=== PATIENT | male | born 1960 | race Caucasian/White ===

== ENCOUNTER 2020-11-17 11:25 | Inpatient (IN) | payer OTHER ==
[2020-11-17 12:45] VITALS: BMI 21.2
[2020-11-17] MEDS ORDERED: MAGNESIUM HYDROX 2400MG/30ML ORAL SUSPENSION 30 ML CUP PO PRN (15:30)
[2020-11-17] MEDS ORDERED: METHOCARBAMOL 500 MG TABLET PO PRN (15:30)
[2020-11-17] MEDS ORDERED: NICOTINE POLACRILEX 2 MG GUM BUC PRN (15:30)
[2020-11-17] MEDS ORDERED: LORazepam 1 MG TABLET PO PRN (15:30)
[2020-11-17] MEDS ORDERED: ONDANSETRON *ODT* 4 MG TABLET SL PRN (15:30)
[2020-11-17] MEDS ORDERED: BISMUTH SUBSALICYLATE 262 MG/15 ML BTL PO PRN (15:30)
[2020-11-17] MEDS ORDERED: IBUPROFEN 400 MG TABLET (FP) PO PRN (15:30)
[2020-11-17] MEDS ORDERED: MENTHOL/PHENOL 1 EACH UD MM PRN (15:30)
[2020-11-17] MEDS ORDERED: MAG HYDROX/AL HYDROX/SIMETH 30 ML UNIT-DOSE CUP PO PRN (15:30)
[2020-11-17] MEDS ORDERED: MAGNESIUM CITRATE 300 ML BOTTLE PO PRN (15:30)
[2020-11-17] MEDS ORDERED: ACETAMINOPHEN 325 MG TABLET (FP) PO PRN ×2 (15:30)
[2020-11-17] MEDS: hydrOXYzine PAMOATE 25 MG CAPSULE (FP) PO SCH ×2 (17:47→22:26)
[2020-11-17] MEDS: LORazepam 2 MG TABLET PO SCH ×2 (17:47→22:26)
[2020-11-17] MEDS: NICOTINE 21 MG/24 HOURS TOPICAL PATCH TD SCH (17:51)
[2020-11-17] MEDS: THIAMINE HCL 100 MG TABLET (FP) PO SCH (22:26)
[2020-11-17] MEDS: MELATONIN 5 MG TABLETS PO SCH (22:26)
[2020-11-18] MEDS: hydrOXYzine PAMOATE 25 MG CAPSULE (FP) PO SCH ×5 (05:41→22:08)
[2020-11-18] MEDS: LORazepam 2 MG TABLET PO SCH ×4 (05:41→22:08)
[2020-11-18] MEDS ORDERED: METHADONE HCL 10 MG TABLET PO ONE (09:54)
[2020-11-18] MEDS ORDERED: METHADONE 120 MG, METHADONE 10 MG, METHADONE 5 MG PO ONE (09:54)
[2020-11-18] MEDS ORDERED: METHADONE HCL 10 MG TABLET ONE (10:19)
[2020-11-18] MEDS ORDERED: METHADONE HCL 40 MG DISPERSABLE TABLET ONE (10:19)
[2020-11-18] MEDS ORDERED: METHADONE HCL 5 MG TABLET ONE (10:19)
[2020-11-18] MEDS: NICOTINE 21 MG/24 HOURS TOPICAL PATCH TD SCH (10:28)
[2020-11-18] MEDS: PRENATAL VITAMINS W/ FOLIC ACID TABLET (FP) PO SCH (10:30)
[2020-11-18 11:14] LABS: CALCIUM 8.7 mg/dL (8.5-10.1)
[2020-11-18 11:15] LABS: ALBUMIN 2.8 g/dl (3.4-5.0); BLOOD UREA NITROGEN 15.8 mg/dL (7-18)
[2020-11-18 11:18] LABS: CREATININE 0.7 mg/dL (0.55-1.3)
[2020-11-18 11:19] LABS: BILIRUBIN,TOTAL 0.1 mg/dL (0.2-1)
[2020-11-18 11:20] LABS: TOT PROT 5.7 g/dl (6.4-8.2)
[2020-11-18 11:26] LABS: HEMATOCRIT 38.9 % (35.4-49); HEMOGLOBIN 13.1 GM/dL (11.7-16.9); MCHC 33.5 g/dl (32.0-35.9); MEAN CELL VOLUME 95.5 fl (80-96); MEAN PLT VOLUME 7.7 fl (7.5-11.1); PLATELET COUNT 244 K/MM3 (134-434); RBC 4.07 M/mm3 (4.00-5.60); RDW 13.7 % (11.9-15.9); WHITE BLOOD COUNT 7.4 K/mm3 (4.0-10.0)
[2020-11-18] MEDS: MELATONIN 5 MG TABLETS PO SCH (22:08)
[2020-11-18] MEDS: THIAMINE HCL 100 MG TABLET (FP) PO SCH (22:08)
[2020-11-19] MEDS: LORazepam 1 MG TABLET PO SCH ×4 (05:27→22:10)
[2020-11-19] MEDS: hydrOXYzine PAMOATE 25 MG CAPSULE (FP) PO SCH ×5 (05:28→22:10)
[2020-11-19] MEDS ORDERED: METHADONE 120 MG, METHADONE 10 MG, METHADONE 5 MG PO SCH (06:00)
[2020-11-19] MEDS ORDERED: METHADONE HCL 10 MG TABLET PO SCH ×2 (06:00→10:30)
[2020-11-19] MEDS ORDERED: METHADONE 120 MG, METHADONE 15 MG PO SCH (10:45)
[2020-11-19] MEDS ORDERED: METHADONE HCL 40 MG DISPERSABLE TABLET ONE (11:08)
[2020-11-19] MEDS ORDERED: METHADONE HCL 10 MG TABLET ONE (11:08)
[2020-11-19] MEDS ORDERED: METHADONE HCL 5 MG TABLET ONE (11:09)
[2020-11-19] MEDS: NICOTINE 21 MG/24 HOURS TOPICAL PATCH TD SCH (11:13)
[2020-11-19] MEDS: PRENATAL VITAMINS W/ FOLIC ACID TABLET (FP) PO SCH (11:13)
[2020-11-19] MEDS: METHADONE 120 MG, METHADONE 10 MG, METHADONE 5 MG PO SCH (11:14)
[2020-11-19] MEDS ORDERED: MASKS NR ONE (16:06)
[2020-11-19] MEDS: MELATONIN 5 MG TABLETS PO SCH (22:10)
[2020-11-19] MEDS: THIAMINE HCL 100 MG TABLET (FP) PO SCH (22:10)
[2020-11-20] MEDS ORDERED: LORazepam 0.5 MG TABLET PO PRN
[2020-11-20] MEDS ORDERED: METHADONE HCL 10 MG TABLET ONE (04:09)
[2020-11-20] MEDS ORDERED: METHADONE HCL 5 MG TABLET ONE (04:10)
[2020-11-20] MEDS ORDERED: METHADONE HCL 40 MG DISPERSABLE TABLET ONE (04:10)
[2020-11-20] MEDS: METHADONE 120 MG, METHADONE 10 MG, METHADONE 5 MG PO SCH (05:28)
[2020-11-20] MEDS: LORazepam 0.5 MG TABLET PO SCH ×4 (05:29→22:08)
[2020-11-20] MEDS: hydrOXYzine PAMOATE 25 MG CAPSULE (FP) PO SCH ×5 (05:29→22:08)
[2020-11-20] MEDS: NICOTINE 21 MG/24 HOURS TOPICAL PATCH TD SCH (10:20)
[2020-11-20] MEDS: PRENATAL VITAMINS W/ FOLIC ACID TABLET (FP) PO SCH (10:20)
[2020-11-20] MEDS ORDERED: MASKS NR ONE (10:40)
[2020-11-20] MEDS: MELATONIN 5 MG TABLETS PO SCH (22:08)
[2020-11-20] MEDS: THIAMINE HCL 100 MG TABLET (FP) PO SCH (22:08)
[2020-11-21] MEDS ORDERED: METHADONE HCL 10 MG TABLET ONE (04:01)
[2020-11-21] MEDS ORDERED: METHADONE HCL 40 MG DISPERSABLE TABLET ONE (04:01)
[2020-11-21] MEDS ORDERED: METHADONE HCL 5 MG TABLET ONE (04:02)
[2020-11-21] MEDS ORDERED: LORazepam 0.5 MG TABLET PO ONE (05:00)
[2020-11-21] MEDS: METHADONE 120 MG, METHADONE 10 MG, METHADONE 5 MG PO SCH (05:43)
[2020-11-21] MEDS: hydrOXYzine PAMOATE 25 MG CAPSULE (FP) PO SCH ×3 (05:44→13:05)
[2020-11-21 07:21] VITALS: BP 113/62; PULSE 60; TEMP 98.4
[2020-11-21] MEDS: PRENATAL VITAMINS W/ FOLIC ACID TABLET (FP) PO SCH (09:28)
[2020-11-21] MEDS: NICOTINE 21 MG/24 HOURS TOPICAL PATCH TD SCH (09:29)
== END 2020-11-21 13:28 | disposition other institution (70) | DRG 773 ==
LOC: YASAS 11:25 → Y3N 15:03
PROVIDERS: ADMIT Allergy & Immunology; ATTEND Allergy & Immunology
PROC: HZ2ZZZZ Detoxification Services for Substance Abuse Treatment (ICD-10-PCS; principal; 2020-11-17)
DX: F13.230 Sedative, hypnotic or anxiolytic dependence with withdrawal, uncomplicated (principal); F11.20 Opioid dependence, uncomplicated; F14.20 Cocaine dependence, uncomplicated; F17.213 Nicotine dependence, cigarettes, with withdrawal; F19.24 Other psychoactive substance dependence with psychoactive substance-induced mood disorder; F31.9 Bipolar disorder, unspecified; J45.20 Mild intermittent asthma, uncomplicated; J43.0 Unilateral pulmonary emphysema [MacLeod's syndrome]; Z59.0 Homelessness
CPT/HCPCS: 36415; 80053; 85027; 86780; 93005; 93010; C9803; U0003

== ENCOUNTER 2020-11-21 13:34 | Inpatient (IN) | payer OTHER ==
[~2020-11-21 13:34] MED LIST: ACETAMINOPHEN 325 MG TABLET (FP) PO PRN; IBUPROFEN 400 MG TABLET (FP) PO PRN; LOPERAMIDE HCL 2 MG CAPSULE PO PRN; MAG HYDROX/AL HYDROX/SIMETH 30 ML UNIT-DOSE CUP PO PRN; MAGNESIUM CITRATE 300 ML BOTTLE PO PRN; MAGNESIUM HYDROX 2400MG/30ML ORAL SUSPENSION 30 ML CUP PO PRN; NICOTINE POLACRILEX 4 MG GUM BC PRN; P-EPHED 60MG/TRIPROLIDI 2.5MG TABLET PO PRN; guaiFENesin 200 MG/10 ML 10 ML UNIT-DOSE CUPS PO PRN
[2020-11-21] MEDS: THIAMINE HCL 100 MG TABLET (FP) PO SCH (21:19)
[2020-11-21] MEDS: MELATONIN 5 MG TABLETS PO SCH (21:19)
[2020-11-22] MEDS ORDERED: methaDONE HCL 40 MG DISPERSABLE TABLET ONE (04:11)
[2020-11-22] MEDS ORDERED: methaDONE HCL 10 MG TABLET ONE (04:12)
[2020-11-22] MEDS ORDERED: methaDONE HCL 10 MG TABLET PO SCH (06:00)
[2020-11-22] MEDS: hydrOXYzine PAMOATE 25 MG CAPSULE (FP) PO PRN (09:32)
[2020-11-22] MEDS: PRENATAL VITAMINS W/ FOLIC ACID TABLET (FP) PO SCH (09:32)
[2020-11-22] MEDS: NICOTINE 21 MG/24 HOURS TOPICAL PATCH TD SCH (09:33)
[2020-11-22] MEDS: MELATONIN 5 MG TABLETS PO SCH (21:16)
[2020-11-22] MEDS: SUVOREXANT 10 MG TABLET PO PRN (21:16)
[2020-11-22] MEDS: THIAMINE HCL 100 MG TABLET (FP) PO SCH (21:16)
[2020-11-23] MEDS ORDERED: methaDONE HCL 40 MG DISPERSABLE TABLET ONE (03:18)
[2020-11-23] MEDS ORDERED: methaDONE HCL 10 MG TABLET ONE (03:18)
[2020-11-23] MEDS: PRENATAL VITAMINS W/ FOLIC ACID TABLET (FP) PO SCH (09:52)
[2020-11-23] MEDS: NICOTINE 21 MG/24 HOURS TOPICAL PATCH TD SCH (09:52)
[2020-11-23] MEDS: hydrOXYzine PAMOATE 25 MG CAPSULE (FP) PO PRN (09:52)
[2020-11-23] MEDS: SUVOREXANT 10 MG TABLET PO PRN (21:18)
[2020-11-23] MEDS: THIAMINE HCL 100 MG TABLET (FP) PO SCH (21:18)
[2020-11-23] MEDS: MELATONIN 5 MG TABLETS PO SCH (21:18)
[2020-11-24] MEDS ORDERED: methaDONE HCL 40 MG DISPERSABLE TABLET ONE (04:43)
[2020-11-24] MEDS ORDERED: methaDONE HCL 10 MG TABLET ONE (04:43)
[2020-11-24] MEDS: PRENATAL VITAMINS W/ FOLIC ACID TABLET (FP) PO SCH (09:52)
[2020-11-24] MEDS: NICOTINE 21 MG/24 HOURS TOPICAL PATCH TD SCH (09:52)
[2020-11-24] MEDS: hydrOXYzine PAMOATE 25 MG CAPSULE (FP) PO PRN (09:52)
[2020-11-24] MEDS: THIAMINE HCL 100 MG TABLET (FP) PO SCH (21:04)
[2020-11-24] MEDS: MELATONIN 5 MG TABLETS PO SCH (21:05)
[2020-11-25] MEDS ORDERED: methaDONE HCL 40 MG DISPERSABLE TABLET ONE (05:35)
[2020-11-25] MEDS ORDERED: methaDONE HCL 10 MG TABLET ONE (05:36)
[2020-11-25] MEDS: hydrOXYzine PAMOATE 25 MG CAPSULE (FP) PO PRN ×3 (08:54→21:48)
[2020-11-25] MEDS: PRENATAL VITAMINS W/ FOLIC ACID TABLET (FP) PO SCH (09:59)
[2020-11-25] MEDS: NICOTINE 21 MG/24 HOURS TOPICAL PATCH TD SCH (09:59)
[2020-11-25] MEDS: THIAMINE HCL 100 MG TABLET (FP) PO SCH (21:47)
[2020-11-25] MEDS: SUVOREXANT 10 MG TABLET PO PRN (21:50)
[2020-11-25] MEDS: MELATONIN 5 MG TABLETS PO SCH (21:50)
[2020-11-26] MEDS ORDERED: methaDONE HCL 40 MG DISPERSABLE TABLET ONE (05:38)
[2020-11-26] MEDS ORDERED: methaDONE HCL 10 MG TABLET ONE (05:39)
[2020-11-26] MEDS: PRENATAL VITAMINS W/ FOLIC ACID TABLET (FP) PO SCH (10:12)
[2020-11-26] MEDS: NICOTINE 21 MG/24 HOURS TOPICAL PATCH TD SCH (10:12)
[2020-11-26] MEDS: hydrOXYzine PAMOATE 25 MG CAPSULE (FP) PO PRN ×2 (10:12→14:50)
[2020-11-26] MEDS: MELATONIN 5 MG TABLETS PO SCH (21:04)
[2020-11-26] MEDS: THIAMINE HCL 100 MG TABLET (FP) PO SCH (21:04)
[2020-11-26] MEDS: SUVOREXANT 10 MG TABLET PO PRN (21:05)
[2020-11-27] MEDS ORDERED: methaDONE HCL 10 MG TABLET ONE (05:36)
[2020-11-27] MEDS ORDERED: methaDONE HCL 40 MG DISPERSABLE TABLET ONE (05:36)
[2020-11-27] MEDS: hydrOXYzine PAMOATE 25 MG CAPSULE (FP) PO PRN ×3 (09:58→21:37)
[2020-11-27] MEDS: PRENATAL VITAMINS W/ FOLIC ACID TABLET (FP) PO SCH (09:58)
[2020-11-27] MEDS: NICOTINE 21 MG/24 HOURS TOPICAL PATCH TD SCH (09:59)
[2020-11-27] MEDS: SUVOREXANT 10 MG TABLET PO PRN (21:36)
[2020-11-27] MEDS: MELATONIN 5 MG TABLETS PO SCH (21:36)
[2020-11-27] MEDS: THIAMINE HCL 100 MG TABLET (FP) PO SCH (21:37)
[2020-11-28] MEDS ORDERED: methaDONE HCL 40 MG DISPERSABLE TABLET ONE (03:41)
[2020-11-28] MEDS ORDERED: methaDONE HCL 10 MG TABLET ONE (03:41)
[2020-11-28] MEDS: PRENATAL VITAMINS W/ FOLIC ACID TABLET (FP) PO SCH (09:43)
[2020-11-28] MEDS: NICOTINE 21 MG/24 HOURS TOPICAL PATCH TD SCH (09:43)
[2020-11-28] MEDS: hydrOXYzine PAMOATE 25 MG CAPSULE (FP) PO PRN ×3 (09:43→21:08)
[2020-11-28] MEDS: THIAMINE HCL 100 MG TABLET (FP) PO SCH (21:08)
[2020-11-28] MEDS: MELATONIN 5 MG TABLETS PO SCH (21:08)
[2020-11-28] MEDS: SUVOREXANT 10 MG TABLET PO PRN (21:08)
[2020-11-29] MEDS ORDERED: methaDONE HCL 10 MG TABLET ONE (05:36)
[2020-11-29] MEDS ORDERED: methaDONE HCL 40 MG DISPERSABLE TABLET ONE (05:36)
[2020-11-29] MEDS: hydrOXYzine PAMOATE 25 MG CAPSULE (FP) PO PRN ×4 (05:54→21:15)
[2020-11-29] MEDS: PRENATAL VITAMINS W/ FOLIC ACID TABLET (FP) PO SCH (10:04)
[2020-11-29] MEDS: NICOTINE 21 MG/24 HOURS TOPICAL PATCH TD SCH (10:05)
[2020-11-29] MEDS: THIAMINE HCL 100 MG TABLET (FP) PO SCH (21:15)
[2020-11-29] MEDS: SUVOREXANT 10 MG TABLET PO PRN (21:15)
[2020-11-30] MEDS ORDERED: methaDONE HCL 40 MG DISPERSABLE TABLET ONE (04:45)
[2020-11-30] MEDS ORDERED: methaDONE HCL 10 MG TABLET ONE (04:46)
[2020-11-30] MEDS: hydrOXYzine PAMOATE 25 MG CAPSULE (FP) PO PRN ×4 (06:24→21:30)
[2020-11-30] MEDS: PRENATAL VITAMINS W/ FOLIC ACID TABLET (FP) PO SCH (09:46)
[2020-11-30] MEDS: NICOTINE 21 MG/24 HOURS TOPICAL PATCH TD SCH (09:46)
[2020-11-30] MEDS: THIAMINE HCL 100 MG TABLET (FP) PO SCH (21:30)
[2020-11-30] MEDS: SUVOREXANT 10 MG TABLET PO PRN (21:31)
[2020-12-01] MEDS ORDERED: methaDONE HCL 40 MG DISPERSABLE TABLET ONE (05:37)
[2020-12-01] MEDS ORDERED: methaDONE HCL 10 MG TABLET ONE (05:38)
[2020-12-01] MEDS: hydrOXYzine PAMOATE 25 MG CAPSULE (FP) PO PRN ×4 (06:04→21:08)
[2020-12-01] MEDS: PRENATAL VITAMINS W/ FOLIC ACID TABLET (FP) PO SCH (09:53)
[2020-12-01] MEDS: NICOTINE 21 MG/24 HOURS TOPICAL PATCH TD SCH (09:53)
[2020-12-01] MEDS: THIAMINE HCL 100 MG TABLET (FP) PO SCH (21:07)
[2020-12-01] MEDS: SUVOREXANT 10 MG TABLET PO PRN (21:08)
[2020-12-02] MEDS ORDERED: methaDONE HCL 40 MG DISPERSABLE TABLET ONE (05:07)
[2020-12-02] MEDS ORDERED: methaDONE HCL 10 MG TABLET ONE (05:07)
[2020-12-02] MEDS: hydrOXYzine PAMOATE 25 MG CAPSULE (FP) PO PRN ×4 (06:18→21:26)
[2020-12-02] MEDS: PRENATAL VITAMINS W/ FOLIC ACID TABLET (FP) PO SCH (10:27)
[2020-12-02] MEDS: NICOTINE 21 MG/24 HOURS TOPICAL PATCH TD SCH (10:28)
[2020-12-02] MEDS: THIAMINE HCL 100 MG TABLET (FP) PO SCH (21:25)
[2020-12-02] MEDS: SUVOREXANT 10 MG TABLET PO PRN (21:26)
[2020-12-03] MEDS ORDERED: methaDONE HCL 40 MG DISPERSABLE TABLET ONE (03:26)
[2020-12-03] MEDS ORDERED: methaDONE HCL 10 MG TABLET ONE (03:26)
[2020-12-03] MEDS: hydrOXYzine PAMOATE 25 MG CAPSULE (FP) PO PRN ×4 (06:15→21:13)
[2020-12-03] MEDS: PRENATAL VITAMINS W/ FOLIC ACID TABLET (FP) PO SCH (10:29)
[2020-12-03] MEDS: NICOTINE 21 MG/24 HOURS TOPICAL PATCH TD SCH (12:36)
[2020-12-03] MEDS: THIAMINE HCL 100 MG TABLET (FP) PO SCH (21:13)
[2020-12-03] MEDS: SUVOREXANT 10 MG TABLET PO PRN (21:14)
[2020-12-04] MEDS ORDERED: methaDONE HCL 40 MG DISPERSABLE TABLET ONE (05:50)
[2020-12-04] MEDS ORDERED: methaDONE HCL 10 MG TABLET ONE (05:50)
[2020-12-04] MEDS: hydrOXYzine PAMOATE 25 MG CAPSULE (FP) PO PRN ×4 (06:18→21:22)
[2020-12-04] MEDS: PRENATAL VITAMINS W/ FOLIC ACID TABLET (FP) PO SCH (09:49)
[2020-12-04] MEDS: NICOTINE 21 MG/24 HOURS TOPICAL PATCH TD SCH (09:49)
[2020-12-04] MEDS: THIAMINE HCL 100 MG TABLET (FP) PO SCH (21:22)
[2020-12-04] MEDS: SUVOREXANT 10 MG TABLET PO PRN (21:23)
[2020-12-04] MEDS ORDERED: SUVOREXANT 10 MG TABLET PO PRN (22:00)
[2020-12-05] MEDS ORDERED: methaDONE HCL 10 MG TABLET ONE (04:29)
[2020-12-05] MEDS ORDERED: methaDONE HCL 40 MG DISPERSABLE TABLET ONE (04:29)
[2020-12-05] MEDS: hydrOXYzine PAMOATE 25 MG CAPSULE (FP) PO PRN (06:17)
[2020-12-05 07:13] VITALS: BP 100/67; PULSE 64; TEMP 97.9
[2020-12-05] MEDS ORDERED: SUVOREXANT 10 MG TABLET PO PRN (22:00)
== END 2020-12-05 09:20 | disposition home or self-care (01) | DRG 772 ==
LOC: YASAS 13:34 → Y3W 13:40
PROVIDERS: ADMIT Allergy & Immunology; ATTEND Allergy & Immunology
PROC: HZ42ZZZ Group Counseling for Substance Abuse Treatment, Cognitive-Behavioral (ICD-10-PCS; principal; 2020-11-21)
DX: F13.20 Sedative, hypnotic or anxiolytic dependence, uncomplicated (principal); F11.20 Opioid dependence, uncomplicated; F14.20 Cocaine dependence, uncomplicated; F17.210 Nicotine dependence, cigarettes, uncomplicated; F19.282 Other psychoactive substance dependence with psychoactive substance-induced sleep disorder; F41.9 Anxiety disorder, unspecified; G47.00 Insomnia, unspecified; J44.9 Chronic obstructive pulmonary disease, unspecified; J45.20 Mild intermittent asthma, uncomplicated

== ENCOUNTER 2021-01-11 10:17 | Inpatient (IN) | payer OTHER ==
[2021-01-11 10:54] VITALS: BMI 22.5
[2021-01-11] MEDS ORDERED: BISMUTH SUBSALICYLATE 524 MG/30 ML UD PO PRN (11:54)
[2021-01-11] MEDS ORDERED: MAGNESIUM HYDROX 2400MG/30ML ORAL SUSPENSION 30 ML CUP PO PRN (11:54)
[2021-01-11] MEDS ORDERED: MAGNESIUM CITRATE 300 ML BOTTLE PO PRN (11:54)
[2021-01-11] MEDS ORDERED: ONDANSETRON *ODT* 4 MG TABLET SL PRN (11:54)
[2021-01-11] MEDS ORDERED: LORazepam 1 MG TABLET PO PRN (11:54)
[2021-01-11] MEDS ORDERED: ACETAMINOPHEN 325 MG TABLET (FP) PO PRN ×2 (11:54)
[2021-01-11] MEDS ORDERED: METHOCARBAMOL 500 MG TABLET PO PRN (11:54)
[2021-01-11] MEDS ORDERED: MENTHOL/PHENOL 1 EACH UD MM PRN (11:54)
[2021-01-11] MEDS ORDERED: IBUPROFEN 400 MG TABLET (FP) PO PRN (11:54)
[2021-01-11] MEDS ORDERED: NICOTINE POLACRILEX 2 MG GUM BUC PRN (11:54)
[2021-01-11] MEDS ORDERED: MAG HYDROX/AL HYDROX/SIMETH 30 ML UNIT-DOSE CUP PO PRN (11:54)
[2021-01-11] MEDS: NICOTINE 21 MG/24 HOURS TOPICAL PATCH TD SCH (12:58)
[2021-01-11] MEDS: hydrOXYzine PAMOATE 25 MG CAPSULE (FP) PO SCH ×3 (13:02→22:21)
[2021-01-11 13:44] LABS: HEMOGLOBIN 13.3 GM/dL (11.7-16.9); MCH 32.3 pg (25.7-33.7); MCHC 34.2 g/dl (32.0-35.9); MEAN CELL VOLUME 94.7 fl (80-96); MEAN PLT VOLUME 7.7 fl (7.5-11.1); PLATELET COUNT 302 K/MM3 (134-434); RBC 4.12 M/mm3 (4.00-5.60); RDW 13.8 % (11.9-15.9); WHITE BLOOD COUNT 9.6 K/mm3 (4.0-10.0)
[2021-01-11 13:53] LABS: POTASSIUM 3.7 mmol/L (3.5-5.1)
[2021-01-11 14:11] LABS: CALCIUM 9.1 mg/dL (8.5-10.1)
[2021-01-11 14:12] LABS: ALBUMIN 3.7 g/dl (3.4-5.0); BLOOD UREA NITROGEN 20.8 mg/dL (7-18)
[2021-01-11 14:14] LABS: BILIRUBIN,TOTAL 0.2 mg/dL (0.2-1); TOT PROT 6.7 g/dl (6.4-8.2)
[2021-01-11 14:15] LABS: CREATININE 0.9 mg/dL (0.55-1.3)
[2021-01-11 14:41] LABS: HIV INTERPRETATION NEGATIVE (NEGATIVE)
[2021-01-11] MEDS: LORazepam 2 MG TABLET PO SCH ×2 (17:38→22:21)
[2021-01-11] MEDS ORDERED: MELATONIN 5 MG TABLETS PO SCH (22:00)
[2021-01-11] MEDS: THIAMINE HCL 100 MG TABLET (FP) PO SCH (22:20)
[2021-01-12] MEDS: hydrOXYzine PAMOATE 25 MG CAPSULE (FP) PO SCH ×2 (06:27→10:14)
[2021-01-12] MEDS: LORazepam 2 MG TABLET PO SCH ×4 (06:27→22:10)
[2021-01-12] MEDS: PRENATAL VITAMINS W/ FOLIC ACID TABLET (FP) PO SCH (10:14)
[2021-01-12] MEDS: NICOTINE 21 MG/24 HOURS TOPICAL PATCH TD SCH (10:14)
[2021-01-12] MEDS ORDERED: cloNIDine HCL 0.1 MG TABLET PO PRN (11:16)
[2021-01-12] MEDS ORDERED: METHADONE HCL 10 MG TABLET (FOR DETOX USE ONLY) PO ONE (11:16)
[2021-01-12] MEDS ORDERED: METHADONE HCL 10 MG TABLET PO ONE (11:27)
[2021-01-12] MEDS ORDERED: METHADONE 120 MG, METHADONE 30 MG PO ONE (11:27)
[2021-01-12] MEDS ORDERED: METHADONE HCL 10 MG TABLET ONE (11:34)
[2021-01-12] MEDS ORDERED: METHADONE HCL 40 MG DISPERSABLE TABLET ONE (11:35)
[2021-01-12] MEDS: THIAMINE HCL 100 MG TABLET (FP) PO SCH (22:10)
[2021-01-13] MEDS ORDERED: METHADONE HCL 10 MG TABLET ONE (04:19)
[2021-01-13] MEDS ORDERED: METHADONE HCL 40 MG DISPERSABLE TABLET ONE (04:20)
[2021-01-13] MEDS: LORazepam 1 MG TABLET PO SCH ×4 (05:41→22:05)
[2021-01-13] MEDS: METHADONE 120 MG, METHADONE 30 MG PO SCH (05:41)
[2021-01-13] MEDS ORDERED: METHADONE HCL 40 MG DISPERSABLE TABLET PO SCH (06:00)
[2021-01-13] MEDS ORDERED: METHADONE (DETOX) 20 MG, METHADONE (DETOX) 5 MG PO ONE (10:00)
[2021-01-13] MEDS: PRENATAL VITAMINS W/ FOLIC ACID TABLET (FP) PO SCH (10:15)
[2021-01-13] MEDS: hydrOXYzine PAMOATE 25 MG CAPSULE (FP) PO PRN ×2 (10:16→17:33)
[2021-01-13] MEDS: NICOTINE 21 MG/24 HOURS TOPICAL PATCH TD SCH (10:16)
[2021-01-13] MEDS: THIAMINE HCL 100 MG TABLET (FP) PO SCH (22:05)
[2021-01-13] MEDS: SUVOREXANT 10 MG TABLET PO PRN (22:06)
[2021-01-14] MEDS ORDERED: LORazepam 0.5 MG TABLET PO PRN
[2021-01-14] MEDS ORDERED: METHADONE HCL 10 MG TABLET ONE (03:14)
[2021-01-14] MEDS ORDERED: METHADONE HCL 40 MG DISPERSABLE TABLET ONE (03:15)
[2021-01-14] MEDS: LORazepam 0.5 MG TABLET PO SCH ×4 (05:47→22:12)
[2021-01-14] MEDS: METHADONE 120 MG, METHADONE 30 MG PO SCH (05:48)
[2021-01-14] MEDS: hydrOXYzine PAMOATE 25 MG CAPSULE (FP) PO PRN ×4 (08:22→22:13)
[2021-01-14] MEDS ORDERED: METHADONE HCL 10 MG TABLET (FOR DETOX USE ONLY) PO ONE (10:00)
[2021-01-14] MEDS: NICOTINE 21 MG/24 HOURS TOPICAL PATCH TD SCH (10:30)
[2021-01-14] MEDS: PRENATAL VITAMINS W/ FOLIC ACID TABLET (FP) PO SCH (10:30)
[2021-01-14] MEDS: THIAMINE HCL 100 MG TABLET (FP) PO SCH (22:12)
[2021-01-14] MEDS: SUVOREXANT 10 MG TABLET PO PRN (22:13)
[2021-01-15] MEDS ORDERED: METHADONE HCL 10 MG TABLET ONE (03:23)
[2021-01-15] MEDS ORDERED: METHADONE HCL 40 MG DISPERSABLE TABLET ONE (03:23)
[2021-01-15] MEDS ORDERED: LORazepam 0.5 MG TABLET PO ONE (05:00)
[2021-01-15] MEDS: METHADONE 120 MG, METHADONE 30 MG PO SCH (05:42)
[2021-01-15] MEDS: hydrOXYzine PAMOATE 25 MG CAPSULE (FP) PO PRN ×2 (05:43→13:20)
[2021-01-15] MEDS: NICOTINE 21 MG/24 HOURS TOPICAL PATCH TD SCH (09:40)
[2021-01-15] MEDS: PRENATAL VITAMINS W/ FOLIC ACID TABLET (FP) PO SCH (09:40)
[2021-01-15] MEDS ORDERED: METHADONE (DETOX) 10 MG, METHADONE (DETOX) 5 MG PO ONE (10:00)
[2021-01-15 14:34] VITALS: BP 116/70; PULSE 69; TEMP 97.5
[2021-01-16] MEDS ORDERED: METHADONE HCL 10 MG TABLET (FOR DETOX USE ONLY) PO ONE (10:00)
[2021-01-17] MEDS ORDERED: METHADONE HCL 5 MG TABLET (FOR DETOX USE ONLY) PO ONE (06:00)
== END 2021-01-15 15:10 | disposition other institution (70) | DRG 773 ==
LOC: YASAS 10:17 → Y3N 11:49
PROVIDERS: ADMIT Allergy & Immunology; ATTEND Allergy & Immunology
PROC: HZ2ZZZZ Detoxification Services for Substance Abuse Treatment (ICD-10-PCS; principal; 2021-01-11)
DX: F11.23 Opioid dependence with withdrawal (principal); F13.230 Sedative, hypnotic or anxiolytic dependence with withdrawal, uncomplicated; F14.20 Cocaine dependence, uncomplicated; F17.210 Nicotine dependence, cigarettes, uncomplicated; F19.282 Other psychoactive substance dependence with psychoactive substance-induced sleep disorder; F19.24 Other psychoactive substance dependence with psychoactive substance-induced mood disorder; F31.9 Bipolar disorder, unspecified; F41.9 Anxiety disorder, unspecified; J43.0 Unilateral pulmonary emphysema [MacLeod's syndrome]; G47.39 Other sleep apnea; M25.551 Pain in right hip; M25.561 Pain in right knee; M54.5 Low back pain; G89.29 Other chronic pain; R63.4 Abnormal weight loss; Z98.890 Other specified postprocedural states; Z59.0 Homelessness; Z68.22 Body mass index [BMI] 22.0-22.9, adult
CPT/HCPCS: 36415; 80053; 85027; 86780; 87389; C9803; U0003

== ENCOUNTER 2021-01-15 15:40 | Inpatient (IN) | payer OTHER ==
[2021-01-15] MEDS ORDERED: ACETAMINOPHEN 325 MG TABLET (FP) PO PRN (16:24)
[2021-01-15] MEDS ORDERED: guaiFENesin 200 MG/10 ML 10 ML UNIT-DOSE CUPS PO PRN (16:24)
[2021-01-15] MEDS ORDERED: MAG HYDROX/AL HYDROX/SIMETH 30 ML UNIT-DOSE CUP PO PRN (16:24)
[2021-01-15] MEDS ORDERED: P-EPHED 60MG/TRIPROLIDI 2.5MG TABLET PO PRN (16:24)
[2021-01-15] MEDS ORDERED: MENTHOL/PHENOL 1 EACH UD MM PRN (16:24)
[2021-01-15] MEDS ORDERED: MAGNESIUM CITRATE 300 ML BOTTLE PO PRN (16:24)
[2021-01-15] MEDS ORDERED: LOPERAMIDE HCL 2 MG CAPSULE PO PRN (16:24)
[2021-01-15] MEDS ORDERED: MAGNESIUM HYDROX 2400MG/30ML ORAL SUSPENSION 30 ML CUP PO PRN (16:24)
[2021-01-15] MEDS ORDERED: IBUPROFEN 400 MG TABLET (FP) PO PRN (16:24)
[2021-01-15] MEDS ORDERED: NICOTINE POLACRILEX 2 MG GUM BUC PRN (16:24)
[2021-01-15] MEDS: hydrOXYzine PAMOATE 25 MG CAPSULE (FP) PO SCH ×2 (17:10→21:22)
[2021-01-15] MEDS: THIAMINE HCL 100 MG TABLET (FP) PO SCH (21:22)
[2021-01-15] MEDS: MELATONIN 5 MG TABLETS PO SCH (21:22)
[2021-01-16] MEDS ORDERED: METHADONE HCL 10 MG TABLET ONE (05:57)
[2021-01-16] MEDS ORDERED: METHADONE HCL 40 MG DISPERSABLE TABLET ONE (05:57)
[2021-01-16] MEDS ORDERED: METHADONE HCL 10 MG TABLET PO SCH (06:00)
[2021-01-16] MEDS: hydrOXYzine PAMOATE 25 MG CAPSULE (FP) PO SCH ×5 (06:05→21:27)
[2021-01-16] MEDS: METHADONE 120 MG, METHADONE 30 MG PO SCH (06:05)
[2021-01-16] MEDS: NICOTINE 21 MG/24 HOURS TOPICAL PATCH TD SCH (10:07)
[2021-01-16] MEDS: PRENATAL VITAMINS W/ FOLIC ACID TABLET (FP) PO SCH (10:07)
[2021-01-16] MEDS: MELATONIN 5 MG TABLETS PO SCH (21:26)
[2021-01-16] MEDS: THIAMINE HCL 100 MG TABLET (FP) PO SCH (21:27)
[2021-01-17] MEDS ORDERED: METHADONE HCL 40 MG DISPERSABLE TABLET ONE (06:06)
[2021-01-17] MEDS ORDERED: METHADONE HCL 10 MG TABLET ONE (06:06)
[2021-01-17] MEDS: METHADONE 120 MG, METHADONE 30 MG PO SCH (06:21)
[2021-01-17] MEDS: hydrOXYzine PAMOATE 25 MG CAPSULE (FP) PO SCH ×5 (06:24→21:19)
[2021-01-17] MEDS: PRENATAL VITAMINS W/ FOLIC ACID TABLET (FP) PO SCH (09:58)
[2021-01-17] MEDS: NICOTINE 21 MG/24 HOURS TOPICAL PATCH TD SCH (09:59)
[2021-01-17] MEDS: MELATONIN 5 MG TABLETS PO SCH (21:19)
[2021-01-17] MEDS: THIAMINE HCL 100 MG TABLET (FP) PO SCH (21:19)
[2021-01-18] MEDS ORDERED: METHADONE HCL 10 MG TABLET ONE (03:13)
[2021-01-18] MEDS ORDERED: METHADONE HCL 40 MG DISPERSABLE TABLET ONE (03:13)
[2021-01-18] MEDS: hydrOXYzine PAMOATE 25 MG CAPSULE (FP) PO SCH ×5 (06:05→21:22)
[2021-01-18] MEDS: METHADONE 120 MG, METHADONE 30 MG PO SCH (06:05)
[2021-01-18] MEDS: PRENATAL VITAMINS W/ FOLIC ACID TABLET (FP) PO SCH (09:57)
[2021-01-18] MEDS: NICOTINE 21 MG/24 HOURS TOPICAL PATCH TD SCH (09:58)
[2021-01-18] MEDS: MELATONIN 5 MG TABLETS PO SCH (21:22)
[2021-01-18] MEDS: THIAMINE HCL 100 MG TABLET (FP) PO SCH (21:22)
[2021-01-19] MEDS ORDERED: METHADONE HCL 40 MG DISPERSABLE TABLET ONE (03:16)
[2021-01-19] MEDS ORDERED: METHADONE HCL 10 MG TABLET ONE (03:17)
[2021-01-19] MEDS: hydrOXYzine PAMOATE 25 MG CAPSULE (FP) PO SCH ×5 (05:51→21:45)
[2021-01-19] MEDS: METHADONE 120 MG, METHADONE 30 MG PO SCH (05:51)
[2021-01-19] MEDS: PRENATAL VITAMINS W/ FOLIC ACID TABLET (FP) PO SCH (10:27)
[2021-01-19] MEDS: NICOTINE 21 MG/24 HOURS TOPICAL PATCH TD SCH (10:27)
[2021-01-19] MEDS: THIAMINE HCL 100 MG TABLET (FP) PO SCH (21:45)
[2021-01-19] MEDS: MELATONIN 5 MG TABLETS PO SCH (21:45)
[2021-01-20] MEDS ORDERED: METHADONE HCL 40 MG DISPERSABLE TABLET ONE (03:45)
[2021-01-20] MEDS ORDERED: METHADONE HCL 10 MG TABLET ONE (03:45)
[2021-01-20] MEDS: METHADONE 120 MG, METHADONE 30 MG PO SCH (06:28)
[2021-01-20] MEDS: hydrOXYzine PAMOATE 25 MG CAPSULE (FP) PO SCH ×3 (06:28→14:27)
[2021-01-20] MEDS: NICOTINE 21 MG/24 HOURS TOPICAL PATCH TD SCH (10:32)
[2021-01-20] MEDS: PRENATAL VITAMINS W/ FOLIC ACID TABLET (FP) PO SCH (10:32)
[2021-01-20] MEDS: MELATONIN 5 MG TABLETS PO SCH (21:46)
[2021-01-20] MEDS: THIAMINE HCL 100 MG TABLET (FP) PO SCH (21:46)
[2021-01-21] MEDS ORDERED: METHADONE HCL 40 MG DISPERSABLE TABLET ONE (04:03)
[2021-01-21] MEDS ORDERED: METHADONE HCL 10 MG TABLET ONE (04:04)
[2021-01-21] MEDS: METHADONE 120 MG, METHADONE 30 MG PO SCH (05:52)
[2021-01-21] MEDS: hydrOXYzine PAMOATE 25 MG CAPSULE (FP) PO PRN (09:38)
[2021-01-21] MEDS: PRENATAL VITAMINS W/ FOLIC ACID TABLET (FP) PO SCH (09:38)
[2021-01-21] MEDS: NICOTINE 21 MG/24 HOURS TOPICAL PATCH TD SCH (09:38)
[2021-01-21] MEDS: MELATONIN 5 MG TABLETS PO SCH (21:45)
[2021-01-21] MEDS: THIAMINE HCL 100 MG TABLET (FP) PO SCH (21:46)
[2021-01-22] MEDS ORDERED: METHADONE HCL 40 MG DISPERSABLE TABLET ONE (04:08)
[2021-01-22] MEDS ORDERED: METHADONE HCL 10 MG TABLET ONE (04:09)
[2021-01-22] MEDS: METHADONE 120 MG, METHADONE 30 MG PO SCH (06:40)
[2021-01-22] MEDS: hydrOXYzine PAMOATE 25 MG CAPSULE (FP) PO PRN (06:42)
[2021-01-22] MEDS: NICOTINE 21 MG/24 HOURS TOPICAL PATCH TD SCH (09:37)
[2021-01-22] MEDS: PRENATAL VITAMINS W/ FOLIC ACID TABLET (FP) PO SCH (09:37)
[2021-01-22] MEDS: MELATONIN 5 MG TABLETS PO SCH (21:40)
[2021-01-22] MEDS: THIAMINE HCL 100 MG TABLET (FP) PO SCH (21:40)
[2021-01-23] MEDS ORDERED: METHADONE HCL 40 MG DISPERSABLE TABLET ONE (03:14)
[2021-01-23] MEDS ORDERED: METHADONE HCL 10 MG TABLET ONE (03:14)
[2021-01-23] MEDS ORDERED: METHADONE HCL 40 MG DISPERSABLE TABLET PO SCH (06:00)
[2021-01-23] MEDS ORDERED: METHADONE 120 MG, METHADONE 30 MG PO SCH (06:00)
[2021-01-23] MEDS: PRENATAL VITAMINS W/ FOLIC ACID TABLET (FP) PO SCH (10:12)
[2021-01-23] MEDS: NICOTINE 21 MG/24 HOURS TOPICAL PATCH TD SCH (13:02)
[2021-01-23] MEDS: MELATONIN 5 MG TABLETS PO SCH (21:03)
[2021-01-23] MEDS: hydrOXYzine PAMOATE 25 MG CAPSULE (FP) PO PRN (21:03)
[2021-01-23] MEDS: THIAMINE HCL 100 MG TABLET (FP) PO SCH (21:03)
[2021-01-24] MEDS ORDERED: METHADONE HCL 40 MG DISPERSABLE TABLET ONE (05:47)
[2021-01-24] MEDS ORDERED: METHADONE HCL 10 MG TABLET ONE (05:47)
[2021-01-24] MEDS: METHADONE 120 MG, METHADONE 30 MG PO SCH (05:56)
[2021-01-24] MEDS: NICOTINE 21 MG/24 HOURS TOPICAL PATCH TD SCH (09:46)
[2021-01-24] MEDS: PRENATAL VITAMINS W/ FOLIC ACID TABLET (FP) PO SCH (09:46)
[2021-01-24] MEDS: THIAMINE HCL 100 MG TABLET (FP) PO SCH (21:31)
[2021-01-24] MEDS: MELATONIN 5 MG TABLETS PO SCH (21:31)
[2021-01-25] MEDS ORDERED: METHADONE HCL 40 MG DISPERSABLE TABLET ONE (03:15)
[2021-01-25] MEDS ORDERED: METHADONE HCL 10 MG TABLET ONE (03:15)
[2021-01-25] MEDS: METHADONE 120 MG, METHADONE 30 MG PO SCH (06:39)
[2021-01-25] MEDS: PRENATAL VITAMINS W/ FOLIC ACID TABLET (FP) PO SCH (09:37)
[2021-01-25] MEDS: NICOTINE 21 MG/24 HOURS TOPICAL PATCH TD SCH (09:37)
[2021-01-25] MEDS: hydrOXYzine PAMOATE 25 MG CAPSULE (FP) PO PRN (14:09)
[2021-01-25] MEDS: THIAMINE HCL 100 MG TABLET (FP) PO SCH (21:12)
[2021-01-25] MEDS: MELATONIN 5 MG TABLETS PO SCH (21:12)
[2021-01-26] MEDS ORDERED: METHADONE HCL 40 MG DISPERSABLE TABLET ONE (03:14)
[2021-01-26] MEDS ORDERED: METHADONE HCL 10 MG TABLET ONE (03:15)
[2021-01-26] MEDS: METHADONE 120 MG, METHADONE 30 MG PO SCH (06:08)
[2021-01-26 07:29] VITALS: BP 113/68; PULSE 69; TEMP 97.9
== END 2021-01-26 09:22 | disposition home or self-care (01) | DRG 772 ==
LOC: YASAS 15:40 → Y3W 15:41
PROVIDERS: ADMIT Allergy & Immunology; ATTEND Allergy & Immunology
PROC: HZ42ZZZ Group Counseling for Substance Abuse Treatment, Cognitive-Behavioral (ICD-10-PCS; principal; 2021-01-15)
DX: F11.20 Opioid dependence, uncomplicated (principal); F13.20 Sedative, hypnotic or anxiolytic dependence, uncomplicated; F14.20 Cocaine dependence, uncomplicated; F17.210 Nicotine dependence, cigarettes, uncomplicated; F19.282 Other psychoactive substance dependence with psychoactive substance-induced sleep disorder; F19.24 Other psychoactive substance dependence with psychoactive substance-induced mood disorder; F41.9 Anxiety disorder, unspecified; J44.9 Chronic obstructive pulmonary disease, unspecified; G40.509 Epileptic seizures related to external causes, not intractable, without status epilepticus; M25.551 Pain in right hip; M25.561 Pain in right knee; M54.5 Low back pain; G89.29 Other chronic pain; Z98.890 Other specified postprocedural states
CPT/HCPCS: C9803; U0003

== ENCOUNTER 2022-02-08 10:18 | Inpatient (IN) | payer MEDICARE, OTHER ==
[2022-02-08 11:11] VITALS: BMI 20.8
[2022-02-08] MEDS ORDERED: MAGNESIUM CITRATE 300 ML BOTTLE PO PRN (11:57)
[2022-02-08] MEDS ORDERED: guaiFENesin 200 MG/10 ML 10 ML UNIT-DOSE CUPS PO PRN (11:57)
[2022-02-08] MEDS ORDERED: MAG HYDROX/AL HYDROX/SIMETH 30 ML UNIT-DOSE CUP PO PRN (11:57)
[2022-02-08] MEDS ORDERED: P-EPHED 60MG/TRIPROLIDI 2.5MG TABLET PO PRN (11:57)
[2022-02-08] MEDS ORDERED: MAGNESIUM HYDROX 2400MG/30ML ORAL SUSPENSION 30 ML CUP PO PRN (11:57)
[2022-02-08] MEDS ORDERED: NICOTINE 10 MG CARTRIDGE (INHALER) IH PRN (11:57)
[2022-02-08 14:00] LABS: HEMATOCRIT 39.2 % (35.4-49); HEMOGLOBIN 12.9 GM/dL (11.7-16.9); MCH 30.6 pg (25.7-33.7); MEAN CELL VOLUME 92.7 fl (80-96); PLATELET COUNT 395 10^3/uL (134-434); RBC 4.22 M/mm3 (4.00-5.60); RDW 14.5 % (11.9-15.9); WHITE BLOOD COUNT 9.4 K/mm3 (4.0-10.0)
[2022-02-08 14:13] LABS: ALBUMIN 3.6 g/dl (3.4-5.0)
[2022-02-08 14:14] LABS: CALCIUM 9.3 mg/dL (8.5-10.1)
[2022-02-08 14:16] LABS: CREATININE 0.7 mg/dL (0.55-1.3)
[2022-02-08 14:17] LABS: BILIRUBIN,TOTAL 0.9 mg/dL (0.2-1)
[2022-02-08 14:18] LABS: TOT PROT 7.2 g/dl (6.4-8.2)
[2022-02-08 14:20] LABS: BLOOD UREA NITROGEN 13.3 mg/dL (7-18)
[2022-02-08 15:27] LABS: SYPHILIS W/ RPR CONF NON-REACTIVE (NONREACTIVE)
[2022-02-08] MEDS: hydrOXYzine PAMOATE 25 MG CAPSULE (FP) PO SCH ×2 (20:07→21:45)
[2022-02-08] MEDS: NICOTINE 7 MG/24 HOURS TOPICAL PATCH TD SCH (20:07)
[2022-02-08] MEDS: PRENATAL VITAMINS W/ FOLIC ACID TABLET (FP) PO SCH (20:07)
[2022-02-08] MEDS: diazePAM 5 MG TABLET PO SCH (21:44)
[2022-02-08] MEDS: THIAMINE HCL 100 MG TABLET (FP) PO SCH (21:45)
[2022-02-08] MEDS: IBUPROFEN 400 MG TABLET (FP) PO PRN (21:46)
[2022-02-08] MEDS: MELATONIN 5 MG TABLETS PO SCH (21:46)
[2022-02-09] MEDS: hydrOXYzine PAMOATE 25 MG CAPSULE (FP) PO SCH ×3 (06:44→13:02)
[2022-02-09] MEDS: PRENATAL VITAMINS W/ FOLIC ACID TABLET (FP) PO SCH (10:03)
[2022-02-09] MEDS: NICOTINE 7 MG/24 HOURS TOPICAL PATCH TD SCH (10:04)
[2022-02-09] MEDS ORDERED: methaDONE HCL 10 MG TABLET PO ONE (12:49)
[2022-02-09] MEDS: diazePAM 5 MG TABLET PO SCH ×2 (12:54→22:13)
[2022-02-09] MEDS ORDERED: methaDONE HCL 10 MG TABLET ONE (12:58)
[2022-02-09] MEDS ORDERED: methaDONE HCL 40 MG DISPERSABLE TABLET ONE (12:59)
[2022-02-09] MEDS: MELATONIN 5 MG TABLETS PO SCH (22:12)
[2022-02-09] MEDS: THIAMINE HCL 100 MG TABLET (FP) PO SCH (22:12)
[2022-02-10] MEDS ORDERED: methaDONE HCL 10 MG TABLET PO SCH (06:00)
[2022-02-10] MEDS ORDERED: methaDONE HCL 10 MG TABLET ONE (06:41)
[2022-02-10] MEDS ORDERED: methaDONE HCL 40 MG DISPERSABLE TABLET ONE (06:41)
[2022-02-10] MEDS: diazePAM 5 MG TABLET PO SCH ×2 (10:11→21:32)
[2022-02-10] MEDS: NICOTINE 7 MG/24 HOURS TOPICAL PATCH TD SCH (10:12)
[2022-02-10] MEDS: PRENATAL VITAMINS W/ FOLIC ACID TABLET (FP) PO SCH (10:12)
[2022-02-10] MEDS: THIAMINE HCL 100 MG TABLET (FP) PO SCH (21:32)
[2022-02-10] MEDS: MELATONIN 5 MG TABLETS PO SCH (21:33)
[2022-02-10] MEDS: hydrOXYzine PAMOATE 25 MG CAPSULE (FP) PO PRN (21:33)
[2022-02-11] MEDS ORDERED: methaDONE HCL 10 MG TABLET ONE (04:43)
[2022-02-11] MEDS ORDERED: methaDONE HCL 40 MG DISPERSABLE TABLET ONE (04:43)
[2022-02-11] MEDS: PRENATAL VITAMINS W/ FOLIC ACID TABLET (FP) PO SCH (10:00)
[2022-02-11] MEDS: diazePAM 5 MG TABLET PO SCH ×2 (10:00→22:07)
[2022-02-11] MEDS: NICOTINE 7 MG/24 HOURS TOPICAL PATCH TD SCH (10:00)
[2022-02-11] MEDS: MELATONIN 5 MG TABLETS PO SCH (22:07)
[2022-02-11] MEDS: THIAMINE HCL 100 MG TABLET (FP) PO SCH (22:07)
[2022-02-12] MEDS ORDERED: methaDONE HCL 10 MG TABLET ONE (06:36)
[2022-02-12] MEDS ORDERED: methaDONE HCL 40 MG DISPERSABLE TABLET ONE (06:36)
[2022-02-12] MEDS: NICOTINE 7 MG/24 HOURS TOPICAL PATCH TD SCH (10:22)
[2022-02-12] MEDS: diazePAM 5 MG TABLET PO SCH ×2 (10:22→21:40)
[2022-02-12] MEDS: PRENATAL VITAMINS W/ FOLIC ACID TABLET (FP) PO SCH (10:22)
[2022-02-12] MEDS ORDERED: TUBERCULIN PPD 5 TU/0.1ML VIAL ID ONE (14:51)
[2022-02-12] MEDS: MELATONIN 5 MG TABLETS PO SCH (21:39)
[2022-02-12] MEDS: THIAMINE HCL 100 MG TABLET (FP) PO SCH (21:40)
[2022-02-13] MEDS ORDERED: methaDONE HCL 10 MG TABLET ONE (03:10)
[2022-02-13] MEDS ORDERED: methaDONE HCL 40 MG DISPERSABLE TABLET ONE (03:10)
[2022-02-13] MEDS: diazePAM 5 MG TABLET PO SCH ×2 (10:06→21:55)
[2022-02-13] MEDS: NICOTINE 7 MG/24 HOURS TOPICAL PATCH TD SCH (10:06)
[2022-02-13] MEDS: PRENATAL VITAMINS W/ FOLIC ACID TABLET (FP) PO SCH (10:06)
[2022-02-13] MEDS: MELATONIN 5 MG TABLETS PO SCH (21:55)
[2022-02-13] MEDS: THIAMINE HCL 100 MG TABLET (FP) PO SCH (21:55)
[2022-02-13] MEDS: DOXEPIN HCL 25 MG CAPSULE PO SCH (21:57)
[2022-02-14] MEDS ORDERED: methaDONE HCL 40 MG DISPERSABLE TABLET ONE (03:17)
[2022-02-14] MEDS ORDERED: methaDONE HCL 10 MG TABLET ONE (03:17)
[2022-02-14 08:08] LABS: SARS-CoV-2 NAA Not Detected (Not Detected)
[2022-02-14] MEDS: NICOTINE 7 MG/24 HOURS TOPICAL PATCH TD SCH (10:04)
[2022-02-14] MEDS: diazePAM 5 MG TABLET PO SCH ×2 (10:04→21:38)
[2022-02-14] MEDS: PRENATAL VITAMINS W/ FOLIC ACID TABLET (FP) PO SCH (10:04)
[2022-02-14] MEDS: IBUPROFEN 400 MG TABLET (FP) PO PRN (10:06)
[2022-02-14] MEDS: THIAMINE HCL 100 MG TABLET (FP) PO SCH (21:37)
[2022-02-14] MEDS: ACETAMINOPHEN 325 MG TABLET (FP) PO PRN (21:38)
[2022-02-14] MEDS: MELATONIN 5 MG TABLETS PO SCH (21:38)
[2022-02-14] MEDS: hydrOXYzine PAMOATE 25 MG CAPSULE (FP) PO PRN (21:39)
[2022-02-14 22:45] LABS: EPI CELLS 1 /uL (0-25.1); HYALINE CASTS 0 /uL (0-3.1); URINE APPEARANCE CLEAR; URINE BACTERIA 0 /uL (0-1359); URINE BILIRUBIN NEGATIVE (NEGATIVE); URINE COLOR YELLOW; URINE GLUCOSE (UA) NEGATIVE (NEGATIVE); URINE KETONE NEGATIVE (NEGATIVE); URINE LEUK ESTERASE NEGATIVE (NEGATIVE); URINE NITRITE NEGATIVE (NEGATIVE); URINE PROTEIN NEGATIVE (NEGATIVE); URINE RBC 4 /uL (0-23.9); URINE UROBILINOGEN 0.2 mg/dL (0.2-1.0); URINE WBC 2 /uL (0-25.8)
[2022-02-14] MEDS: DOXEPIN HCL 25 MG CAPSULE PO SCH (23:20)
[2022-02-15] MEDS ORDERED: methaDONE HCL 10 MG TABLET ONE (02:42)
[2022-02-15] MEDS ORDERED: methaDONE HCL 40 MG DISPERSABLE TABLET ONE (02:42)
[2022-02-15] MEDS: PRENATAL VITAMINS W/ FOLIC ACID TABLET (FP) PO SCH (09:15)
[2022-02-15] MEDS: diazePAM 5 MG TABLET PO SCH ×2 (09:15→21:39)
[2022-02-15] MEDS: NICOTINE 7 MG/24 HOURS TOPICAL PATCH TD SCH (09:16)
[2022-02-15] MEDS: hydrOXYzine PAMOATE 25 MG CAPSULE (FP) PO PRN (21:38)
[2022-02-15] MEDS: DOXEPIN HCL 25 MG CAPSULE PO SCH (21:39)
[2022-02-15] MEDS: THIAMINE HCL 100 MG TABLET (FP) PO SCH (21:39)
[2022-02-15] MEDS: MELATONIN 5 MG TABLETS PO SCH (21:40)
[2022-02-15] MEDS: LOPERAMIDE HCL 2 MG CAPSULE PO PRN (21:50)
[2022-02-16] MEDS ORDERED: methaDONE HCL 10 MG TABLET ONE (02:40)
[2022-02-16] MEDS ORDERED: methaDONE HCL 40 MG DISPERSABLE TABLET ONE (02:40)
[2022-02-16] MEDS: LOPERAMIDE HCL 2 MG CAPSULE PO PRN (09:14)
[2022-02-16] MEDS: NICOTINE 7 MG/24 HOURS TOPICAL PATCH TD SCH (09:14)
[2022-02-16] MEDS: PRENATAL VITAMINS W/ FOLIC ACID TABLET (FP) PO SCH (09:14)
[2022-02-16] MEDS: IBUPROFEN 400 MG TABLET (FP) PO PRN ×2 (09:15→21:32)
[2022-02-16] MEDS: diazePAM 5 MG TABLET PO SCH ×2 (09:15→21:28)
[2022-02-16] MEDS: THIAMINE HCL 100 MG TABLET (FP) PO SCH (21:28)
[2022-02-16] MEDS: DOXEPIN HCL 25 MG CAPSULE PO SCH (21:28)
[2022-02-16] MEDS: MELATONIN 5 MG TABLETS PO SCH (21:28)
[2022-02-17] MEDS ORDERED: methaDONE HCL 40 MG DISPERSABLE TABLET ONE (05:02)
[2022-02-17] MEDS ORDERED: methaDONE HCL 10 MG TABLET ONE (05:02)
[2022-02-17] MEDS: PRENATAL VITAMINS W/ FOLIC ACID TABLET (FP) PO SCH (10:07)
[2022-02-17] MEDS: diazePAM 5 MG TABLET PO SCH ×2 (10:08→21:22)
[2022-02-17] MEDS: NICOTINE 7 MG/24 HOURS TOPICAL PATCH TD SCH (10:08)
[2022-02-17] MEDS: DOXEPIN HCL 25 MG CAPSULE PO SCH (21:22)
[2022-02-17] MEDS: THIAMINE HCL 100 MG TABLET (FP) PO SCH (21:22)
[2022-02-17] MEDS: MELATONIN 5 MG TABLETS PO SCH (21:23)
[2022-02-18] MEDS ORDERED: methaDONE HCL 10 MG TABLET ONE (04:13)
[2022-02-18] MEDS ORDERED: methaDONE HCL 40 MG DISPERSABLE TABLET ONE (04:13)
[2022-02-18] MEDS: LOPERAMIDE HCL 2 MG CAPSULE PO PRN (08:25)
[2022-02-18] MEDS: PRENATAL VITAMINS W/ FOLIC ACID TABLET (FP) PO SCH (10:15)
[2022-02-18] MEDS: NICOTINE 7 MG/24 HOURS TOPICAL PATCH TD SCH (10:15)
[2022-02-18] MEDS: diazePAM 5 MG TABLET PO SCH ×2 (10:15→21:40)
[2022-02-18] MEDS: IBUPROFEN 400 MG TABLET (FP) PO PRN (17:36)
[2022-02-18] MEDS: MELATONIN 5 MG TABLETS PO SCH (21:39)
[2022-02-18] MEDS: DOXEPIN HCL 25 MG CAPSULE PO SCH (21:40)
[2022-02-18] MEDS: THIAMINE HCL 100 MG TABLET (FP) PO SCH (21:40)
[2022-02-19] MEDS ORDERED: methaDONE HCL 10 MG TABLET ONE (04:13)
[2022-02-19] MEDS ORDERED: methaDONE HCL 40 MG DISPERSABLE TABLET ONE (04:13)
[2022-02-19] MEDS: PRENATAL VITAMINS W/ FOLIC ACID TABLET (FP) PO SCH (10:16)
[2022-02-19] MEDS: NICOTINE 7 MG/24 HOURS TOPICAL PATCH TD SCH (10:17)
[2022-02-19] MEDS: diazePAM 5 MG TABLET PO SCH ×2 (10:17→21:45)
[2022-02-19] MEDS: IBUPROFEN 400 MG TABLET (FP) PO PRN (17:37)
[2022-02-19] MEDS: MELATONIN 5 MG TABLETS PO SCH (21:46)
[2022-02-19] MEDS: THIAMINE HCL 100 MG TABLET (FP) PO SCH (21:46)
[2022-02-19] MEDS: DOXEPIN HCL 25 MG CAPSULE PO SCH (21:46)
[2022-02-19] MEDS: ACETAMINOPHEN 325 MG TABLET (FP) PO PRN (21:46)
[2022-02-20] MEDS ORDERED: methaDONE HCL 10 MG TABLET ONE (05:09)
[2022-02-20] MEDS ORDERED: methaDONE HCL 40 MG DISPERSABLE TABLET ONE (05:09)
[2022-02-20] MEDS: NICOTINE 7 MG/24 HOURS TOPICAL PATCH TD SCH (10:18)
[2022-02-20] MEDS: PRENATAL VITAMINS W/ FOLIC ACID TABLET (FP) PO SCH (10:18)
[2022-02-20] MEDS: diazePAM 5 MG TABLET PO SCH ×2 (10:18→21:40)
[2022-02-20] MEDS: ACETAMINOPHEN 325 MG TABLET (FP) PO PRN ×2 (14:30→21:41)
[2022-02-20] MEDS: MELATONIN 5 MG TABLETS PO SCH (21:40)
[2022-02-20] MEDS: THIAMINE HCL 100 MG TABLET (FP) PO SCH (21:40)
[2022-02-20] MEDS: DOXEPIN HCL 25 MG CAPSULE PO SCH (21:40)
[2022-02-21] MEDS ORDERED: methaDONE HCL 40 MG DISPERSABLE TABLET ONE (03:04)
[2022-02-21] MEDS ORDERED: methaDONE HCL 10 MG TABLET ONE (03:04)
[2022-02-21] MEDS: NICOTINE 7 MG/24 HOURS TOPICAL PATCH TD SCH (10:20)
[2022-02-21] MEDS: PRENATAL VITAMINS W/ FOLIC ACID TABLET (FP) PO SCH (10:20)
[2022-02-21] MEDS: diazePAM 5 MG TABLET PO SCH ×2 (10:21→21:52)
[2022-02-21] MEDS: IBUPROFEN 400 MG TABLET (FP) PO PRN (21:52)
[2022-02-21] MEDS: DOXEPIN HCL 25 MG CAPSULE PO SCH (21:52)
[2022-02-21] MEDS: MELATONIN 5 MG TABLETS PO SCH (21:53)
[2022-02-21] MEDS: THIAMINE HCL 100 MG TABLET (FP) PO SCH (21:53)
[2022-02-21] MEDS: hydrOXYzine PAMOATE 25 MG CAPSULE (FP) PO PRN (21:53)
[2022-02-22] MEDS ORDERED: methaDONE HCL 10 MG TABLET ONE (03:09)
[2022-02-22] MEDS ORDERED: methaDONE HCL 40 MG DISPERSABLE TABLET ONE (03:10)
[2022-02-22] MEDS: PRENATAL VITAMINS W/ FOLIC ACID TABLET (FP) PO SCH (10:30)
[2022-02-22] MEDS: NICOTINE 7 MG/24 HOURS TOPICAL PATCH TD SCH (10:31)
[2022-02-22] MEDS: diazePAM 5 MG TABLET PO SCH ×2 (10:31→21:44)
[2022-02-22] MEDS: IBUPROFEN 400 MG TABLET (FP) PO PRN (21:44)
[2022-02-22] MEDS: THIAMINE HCL 100 MG TABLET (FP) PO SCH (21:44)
[2022-02-22] MEDS: hydrOXYzine PAMOATE 25 MG CAPSULE (FP) PO PRN (21:44)
[2022-02-22] MEDS: MELATONIN 5 MG TABLETS PO SCH (21:45)
[2022-02-22] MEDS: DOXEPIN HCL 25 MG CAPSULE PO SCH (21:45)
[2022-02-23] MEDS ORDERED: methaDONE HCL 40 MG DISPERSABLE TABLET ONE (07:25)
[2022-02-23] MEDS ORDERED: methaDONE HCL 10 MG TABLET ONE (07:25)
[2022-02-23] MEDS: NICOTINE 7 MG/24 HOURS TOPICAL PATCH TD SCH (09:36)
[2022-02-23] MEDS: PRENATAL VITAMINS W/ FOLIC ACID TABLET (FP) PO SCH (09:36)
[2022-02-23] MEDS: diazePAM 5 MG TABLET PO SCH ×2 (09:36→21:29)
[2022-02-23] MEDS: DOXEPIN HCL 25 MG CAPSULE PO SCH (21:28)
[2022-02-23] MEDS: THIAMINE HCL 100 MG TABLET (FP) PO SCH (21:29)
[2022-02-23] MEDS: MELATONIN 5 MG TABLETS PO SCH (21:31)
[2022-02-24] MEDS ORDERED: methaDONE HCL 40 MG DISPERSABLE TABLET ONE (04:35)
[2022-02-24] MEDS ORDERED: methaDONE HCL 10 MG TABLET ONE (04:35)
[2022-02-24] MEDS: PRENATAL VITAMINS W/ FOLIC ACID TABLET (FP) PO SCH (10:28)
[2022-02-24] MEDS: NICOTINE 7 MG/24 HOURS TOPICAL PATCH TD SCH (10:28)
[2022-02-24] MEDS: diazePAM 5 MG TABLET PO SCH ×2 (10:28→21:23)
[2022-02-24] MEDS: DOXEPIN HCL 25 MG CAPSULE PO SCH (21:23)
[2022-02-24] MEDS: MELATONIN 5 MG TABLETS PO SCH (21:23)
[2022-02-24] MEDS: THIAMINE HCL 100 MG TABLET (FP) PO SCH (21:23)
[2022-02-25] MEDS ORDERED: methaDONE HCL 10 MG TABLET ONE (04:14)
[2022-02-25] MEDS ORDERED: methaDONE HCL 40 MG DISPERSABLE TABLET ONE (04:15)
[2022-02-25] MEDS: NICOTINE 7 MG/24 HOURS TOPICAL PATCH TD SCH (10:11)
[2022-02-25] MEDS: ACETAMINOPHEN 325 MG TABLET (FP) PO PRN ×2 (10:11→15:39)
[2022-02-25] MEDS: PRENATAL VITAMINS W/ FOLIC ACID TABLET (FP) PO SCH (10:11)
[2022-02-25] MEDS: diazePAM 5 MG TABLET PO SCH ×2 (10:12→21:28)
[2022-02-25] MEDS: DOXEPIN HCL 25 MG CAPSULE PO SCH (21:28)
[2022-02-25] MEDS: MELATONIN 5 MG TABLETS PO SCH (21:28)
[2022-02-25] MEDS: THIAMINE HCL 100 MG TABLET (FP) PO SCH (21:28)
[2022-02-26] MEDS ORDERED: methaDONE HCL 40 MG DISPERSABLE TABLET ONE (03:45)
[2022-02-26] MEDS ORDERED: methaDONE HCL 10 MG TABLET ONE (03:45)
[2022-02-26] MEDS: NICOTINE 7 MG/24 HOURS TOPICAL PATCH TD SCH (10:01)
[2022-02-26] MEDS: PRENATAL VITAMINS W/ FOLIC ACID TABLET (FP) PO SCH (10:01)
[2022-02-26] MEDS: diazePAM 5 MG TABLET PO SCH ×2 (10:03→21:21)
[2022-02-26] MEDS: MELATONIN 5 MG TABLETS PO SCH (21:20)
[2022-02-26] MEDS: THIAMINE HCL 100 MG TABLET (FP) PO SCH (21:21)
[2022-02-26] MEDS: DOXEPIN HCL 25 MG CAPSULE PO SCH (21:21)
[2022-02-27] MEDS ORDERED: methaDONE HCL 10 MG TABLET ONE (04:54)
[2022-02-27] MEDS ORDERED: methaDONE HCL 40 MG DISPERSABLE TABLET ONE (04:55)
[2022-02-27] MEDS: PRENATAL VITAMINS W/ FOLIC ACID TABLET (FP) PO SCH (10:11)
[2022-02-27] MEDS: NICOTINE 7 MG/24 HOURS TOPICAL PATCH TD SCH (10:11)
[2022-02-27] MEDS: diazePAM 5 MG TABLET PO SCH ×2 (12:11→21:32)
[2022-02-27] MEDS: MELATONIN 5 MG TABLETS PO SCH ×2 (21:32→22:35)
[2022-02-27] MEDS: DOXEPIN HCL 25 MG CAPSULE PO SCH (21:32)
[2022-02-27] MEDS: THIAMINE HCL 100 MG TABLET (FP) PO SCH (21:32)
[2022-02-28] MEDS ORDERED: methaDONE HCL 10 MG TABLET ONE (05:31)
[2022-02-28] MEDS ORDERED: methaDONE HCL 40 MG DISPERSABLE TABLET ONE (05:31)
[2022-02-28] MEDS: NICOTINE 7 MG/24 HOURS TOPICAL PATCH TD SCH (10:08)
[2022-02-28] MEDS: PRENATAL VITAMINS W/ FOLIC ACID TABLET (FP) PO SCH (10:08)
[2022-02-28] MEDS: diazePAM 5 MG TABLET PO SCH ×3 (11:00→22:00)
[2022-02-28] MEDS: MELATONIN 5 MG TABLETS PO SCH (21:44)
[2022-02-28] MEDS: DOXEPIN HCL 25 MG CAPSULE PO SCH (21:45)
[2022-02-28] MEDS: THIAMINE HCL 100 MG TABLET (FP) PO SCH (21:45)
[2022-03-01] MEDS ORDERED: methaDONE HCL 10 MG TABLET ONE (02:48)
[2022-03-01] MEDS ORDERED: methaDONE HCL 40 MG DISPERSABLE TABLET ONE (02:49)
[2022-03-01] MEDS: NICOTINE 7 MG/24 HOURS TOPICAL PATCH TD SCH (10:23)
[2022-03-01] MEDS: PRENATAL VITAMINS W/ FOLIC ACID TABLET (FP) PO SCH (10:24)
[2022-03-01] MEDS: diazePAM 5 MG TABLET PO SCH ×2 (11:20→21:21)
[2022-03-01] MEDS: MELATONIN 5 MG TABLETS PO SCH (21:22)
[2022-03-01] MEDS: DOXEPIN HCL 25 MG CAPSULE PO SCH (21:22)
[2022-03-01] MEDS: THIAMINE HCL 100 MG TABLET (FP) PO SCH (21:22)
[2022-03-01] MEDS: hydrOXYzine PAMOATE 25 MG CAPSULE (FP) PO PRN (21:22)
[2022-03-02] MEDS ORDERED: methaDONE HCL 10 MG TABLET ONE (02:32)
[2022-03-02] MEDS ORDERED: methaDONE HCL 40 MG DISPERSABLE TABLET ONE (02:32)
[2022-03-02] MEDS: PRENATAL VITAMINS W/ FOLIC ACID TABLET (FP) PO SCH (10:08)
[2022-03-02] MEDS: NICOTINE 7 MG/24 HOURS TOPICAL PATCH TD SCH (10:08)
[2022-03-02] MEDS: diazePAM 5 MG TABLET PO SCH ×2 (10:09→21:29)
[2022-03-02] MEDS: DOXEPIN HCL 25 MG CAPSULE PO SCH (21:28)
[2022-03-02] MEDS: THIAMINE HCL 100 MG TABLET (FP) PO SCH (21:28)
[2022-03-02] MEDS: MELATONIN 5 MG TABLETS PO SCH (21:29)
[2022-03-03] MEDS ORDERED: methaDONE HCL 10 MG TABLET ONE (04:56)
[2022-03-03] MEDS ORDERED: methaDONE HCL 40 MG DISPERSABLE TABLET ONE (04:57)
[2022-03-03] MEDS: PRENATAL VITAMINS W/ FOLIC ACID TABLET (FP) PO SCH (10:21)
[2022-03-03] MEDS: diazePAM 5 MG TABLET PO SCH ×2 (10:21→21:27)
[2022-03-03] MEDS: NICOTINE 7 MG/24 HOURS TOPICAL PATCH TD SCH (10:22)
[2022-03-03] MEDS: MELATONIN 5 MG TABLETS PO SCH (21:27)
[2022-03-03] MEDS: DOXEPIN HCL 25 MG CAPSULE PO SCH (21:27)
[2022-03-03] MEDS: THIAMINE HCL 100 MG TABLET (FP) PO SCH (21:28)
[2022-03-04] MEDS ORDERED: methaDONE HCL 10 MG TABLET ONE (03:02)
[2022-03-04] MEDS ORDERED: methaDONE HCL 40 MG DISPERSABLE TABLET ONE (03:03)
[2022-03-04] MEDS: NICOTINE 7 MG/24 HOURS TOPICAL PATCH TD SCH (10:23)
[2022-03-04] MEDS: PRENATAL VITAMINS W/ FOLIC ACID TABLET (FP) PO SCH (10:23)
[2022-03-04] MEDS: diazePAM 5 MG TABLET PO SCH ×2 (10:24→21:34)
[2022-03-04] MEDS: DOXEPIN HCL 25 MG CAPSULE PO SCH (21:34)
[2022-03-04] MEDS: THIAMINE HCL 100 MG TABLET (FP) PO SCH (21:34)
[2022-03-04] MEDS: MELATONIN 5 MG TABLETS PO SCH (21:35)
[2022-03-05] MEDS ORDERED: methaDONE HCL 10 MG TABLET ONE (03:09)
[2022-03-05] MEDS ORDERED: methaDONE HCL 40 MG DISPERSABLE TABLET ONE (03:10)
[2022-03-05] MEDS: PRENATAL VITAMINS W/ FOLIC ACID TABLET (FP) PO SCH (10:26)
[2022-03-05] MEDS: NICOTINE 7 MG/24 HOURS TOPICAL PATCH TD SCH (10:26)
[2022-03-05] MEDS: diazePAM 5 MG TABLET PO SCH ×2 (10:27→21:46)
[2022-03-05] MEDS: DOXEPIN HCL 25 MG CAPSULE PO SCH (21:46)
[2022-03-05] MEDS: THIAMINE HCL 100 MG TABLET (FP) PO SCH (21:46)
[2022-03-05] MEDS: MELATONIN 5 MG TABLETS PO SCH (21:46)
[2022-03-06] MEDS ORDERED: methaDONE HCL 10 MG TABLET ONE (03:45)
[2022-03-06] MEDS ORDERED: methaDONE HCL 40 MG DISPERSABLE TABLET ONE (03:45)
[2022-03-06 07:21] VITALS: TEMP 98.6
[2022-03-06 09:19] VITALS: BP 92/60; PULSE 76
[2022-03-06] MEDS: NICOTINE 7 MG/24 HOURS TOPICAL PATCH TD SCH (10:13)
[2022-03-06] MEDS: diazePAM 5 MG TABLET PO SCH (10:13)
[2022-03-06] MEDS: PRENATAL VITAMINS W/ FOLIC ACID TABLET (FP) PO SCH (10:13)
== END 2022-03-06 10:05 | disposition home or self-care (01) | DRG 895 ==
LOC: YASAS 10:18 → Y5N 16:40
PROVIDERS: ADMIT Allergy & Immunology; ATTEND Allergy & Immunology
PROC: HZ42ZZZ Group Counseling for Substance Abuse Treatment, Cognitive-Behavioral (ICD-10-PCS; principal; 2022-02-08)
DX: F11.20 Opioid dependence, uncomplicated (principal); F13.20 Sedative, hypnotic or anxiolytic dependence, uncomplicated; F14.20 Cocaine dependence, uncomplicated; F19.282 Other psychoactive substance dependence with psychoactive substance-induced sleep disorder; F19.280 Other psychoactive substance dependence with psychoactive substance-induced anxiety disorder; F12.20 Cannabis dependence, uncomplicated; F17.210 Nicotine dependence, cigarettes, uncomplicated; F41.9 Anxiety disorder, unspecified; F31.9 Bipolar disorder, unspecified; J43.9 Emphysema, unspecified; J45.20 Mild intermittent asthma, uncomplicated; M17.11 Unilateral primary osteoarthritis, right knee; M16.11 Unilateral primary osteoarthritis, right hip; M54.50 Low back pain, unspecified; G89.29 Other chronic pain; Z56.0 Unemployment, unspecified; Z59.00 Homelessness unspecified
CPT/HCPCS: 36415; 80053; 81003; 82962; 85027; 86780; 86803; 87522; C9803-CS; U0003; U0005

== ENCOUNTER 2022-05-29 13:08 | Inpatient (IN) | payer MEDICARE, OTHER ==
[2022-05-29 15:18] VITALS: BMI 21.2
[2022-05-29] MEDS ORDERED: ACETAMINOPHEN 325 MG TABLET (FP) PO PRN ×2 (15:37)
[2022-05-29] MEDS ORDERED: DICYCLOMINE HCL 10 MG CAPSULE PO PRN (15:37)
[2022-05-29] MEDS ORDERED: IBUPROFEN 400 MG TABLET (FP) PO PRN (15:37)
[2022-05-29] MEDS ORDERED: BISMUTH SUBSALICYLATE 524 MG/30 ML PO PRN (15:37)
[2022-05-29] MEDS ORDERED: ONDANSETRON *ODT* 4 MG TABLET SL PRN (15:37)
[2022-05-29] MEDS ORDERED: MAG HYDROX/AL HYDROX/SIMETH 30 ML UNIT-DOSE CUP PO PRN (15:37)
[2022-05-29] MEDS ORDERED: MAGNESIUM HYDROX 2400MG/30ML ORAL SUSPENSION 30 ML CUP PO PRN (15:37)
[2022-05-29] MEDS ORDERED: MAGNESIUM CITRATE 300 ML BOTTLE PO PRN (15:37)
[2022-05-29] MEDS ORDERED: BENZOCAINE/MENTHOL (CHLORASEPTIC ) LOZENGE MM PRN (15:37)
[2022-05-29] MEDS ORDERED: LOPERAMIDE HCL 2 MG CAPSULE PO PRN (15:37)
[2022-05-29] MEDS ORDERED: NICOTINE 10 MG CARTRIDGE (INHALER) IH PRN (15:37)
[2022-05-29] MEDS: diazePAM 5 MG TABLET PO SCH ×2 (17:00→22:33)
[2022-05-29] MEDS: PRENATAL VITAMINS W/ FOLIC ACID TABLET (FP) PO SCH (17:02)
[2022-05-29] MEDS: diazePAM 5 MG TABLET PO PRN (19:57)
[2022-05-29] MEDS: hydrOXYzine PAMOATE 25 MG CAPSULE (FP) PO SCH ×2 (19:59→22:33)
[2022-05-29] MEDS: MELATONIN 5 MG TABLETS PO SCH (22:33)
[2022-05-29] MEDS: THIAMINE HCL 100 MG TABLET (FP) PO SCH (22:33)
[2022-05-30] MEDS: diazePAM 5 MG TABLET PO SCH ×4 (05:43→22:19)
[2022-05-30] MEDS: hydrOXYzine PAMOATE 25 MG CAPSULE (FP) PO SCH ×5 (05:43→22:20)
[2022-05-30 11:42] LABS: HEMATOCRIT 36.5 % (35.4-49); HEMOGLOBIN 12.4 GM/dL (11.7-16.9); MCH 31.4 pg (25.7-33.7); MEAN CELL VOLUME 92.5 fl (80-96); MEAN PLT VOLUME 7.5 fl (7.5-11.1); PLATELET COUNT 300 10^3/uL (134-434); RBC 3.95 M/mm3 (4.00-5.60); RDW 13.9 % (11.9-15.9); WHITE BLOOD COUNT 7.6 K/mm3 (4.0-10.0)
[2022-05-30] MEDS: METHOCARBAMOL 500 MG TABLET PO PRN (12:34)
[2022-05-30] MEDS: PRENATAL VITAMINS W/ FOLIC ACID TABLET (FP) PO SCH (12:34)
[2022-05-30] MEDS: NICOTINE 14 MG/24 HOURS TOPICAL PATCH TD SCH (12:37)
[2022-05-30] MEDS ORDERED: methaDONE HCL 40 MG DISPERSABLE TABLET PO ONE (13:01)
[2022-05-30 15:06] LABS: CALCIUM 9.1 mg/dL (8.5-10.1)
[2022-05-30 15:07] LABS: ALBUMIN 3.2 g/dl (3.4-5.0); BLOOD UREA NITROGEN 15.8 mg/dL (7-18)
[2022-05-30 15:10] LABS: CREATININE 0.7 mg/dL (0.55-1.3)
[2022-05-30 15:11] LABS: BILIRUBIN,TOTAL 0.4 mg/dL (0.2-1); TOT PROT 6.1 g/dl (6.4-8.2)
[2022-05-30] MEDS: IBUPROFEN 600 MG TABLET (FP) PO PRN (17:50)
[2022-05-30] MEDS: THIAMINE HCL 100 MG TABLET (FP) PO SCH (22:18)
[2022-05-30] MEDS: MELATONIN 5 MG TABLETS PO SCH (22:20)
[2022-05-31] MEDS: hydrOXYzine PAMOATE 25 MG CAPSULE (FP) PO SCH ×5 (05:59→22:36)
[2022-05-31] MEDS: methaDONE HCL 40 MG DISPERSABLE TABLET PO SCH (05:59)
[2022-05-31] MEDS: diazePAM 5 MG TABLET PO SCH ×3 (05:59→22:36)
[2022-05-31] MEDS: METHOCARBAMOL 500 MG TABLET PO PRN (10:17)
[2022-05-31] MEDS: PRENATAL VITAMINS W/ FOLIC ACID TABLET (FP) PO SCH (10:17)
[2022-05-31] MEDS: diazePAM 5 MG TABLET PO PRN ×2 (10:17→17:45)
[2022-05-31] MEDS: NICOTINE 14 MG/24 HOURS TOPICAL PATCH TD SCH (10:19)
[2022-05-31] MEDS: IBUPROFEN 600 MG TABLET (FP) PO PRN (12:18)
[2022-05-31] MEDS ORDERED: POTASSIUM CHLORIDE ORAL LIQUID 20 MEQ/15 ML PO ONE (15:46)
[2022-05-31] MEDS: MELATONIN 5 MG TABLETS PO SCH (22:35)
[2022-05-31] MEDS: THIAMINE HCL 100 MG TABLET (FP) PO SCH (22:36)
[2022-06-01] MEDS: hydrOXYzine PAMOATE 25 MG CAPSULE (FP) PO SCH ×5 (06:02→22:34)
[2022-06-01] MEDS: diazePAM 5 MG TABLET PO SCH ×2 (06:02→17:40)
[2022-06-01] MEDS: methaDONE HCL 40 MG DISPERSABLE TABLET PO SCH (06:02)
[2022-06-01] MEDS: diazePAM 5 MG TABLET PO PRN (10:43)
[2022-06-01] MEDS: IBUPROFEN 600 MG TABLET (FP) PO PRN (10:44)
[2022-06-01] MEDS: METHOCARBAMOL 500 MG TABLET PO PRN (10:44)
[2022-06-01] MEDS: NICOTINE 14 MG/24 HOURS TOPICAL PATCH TD SCH (10:46)
[2022-06-01] MEDS: PRENATAL VITAMINS W/ FOLIC ACID TABLET (FP) PO SCH (10:46)
[2022-06-01] MEDS: MELATONIN 5 MG TABLETS PO SCH (22:34)
[2022-06-01] MEDS: THIAMINE HCL 100 MG TABLET (FP) PO SCH (22:34)
[2022-06-02] MEDS: methaDONE HCL 40 MG DISPERSABLE TABLET PO SCH (05:34)
[2022-06-02] MEDS: hydrOXYzine PAMOATE 25 MG CAPSULE (FP) PO SCH ×2 (05:34→10:42)
[2022-06-02] MEDS ORDERED: diazePAM 5 MG TABLET PO ONE (06:00)
[2022-06-02 10:18] VITALS: BP 139/78; PULSE 68; TEMP 97.6
[2022-06-02] MEDS: PRENATAL VITAMINS W/ FOLIC ACID TABLET (FP) PO SCH (10:42)
[2022-06-02] MEDS: METHOCARBAMOL 500 MG TABLET PO PRN (10:42)
[2022-06-02] MEDS: IBUPROFEN 600 MG TABLET (FP) PO PRN (10:42)
[2022-06-02] MEDS: NICOTINE 14 MG/24 HOURS TOPICAL PATCH TD SCH (10:44)
== END 2022-06-02 12:30 | disposition other institution (70) | DRG 897 ==
LOC: YASAS 13:08 → Y6N 16:31
PROVIDERS: ADMIT Allergy & Immunology; ATTEND Surgery
PROC: HZ2ZZZZ Detoxification Services for Substance Abuse Treatment (ICD-10-PCS; principal; 2022-05-29)
DX: F10.230 Alcohol dependence with withdrawal, uncomplicated (principal); F11.20 Opioid dependence, uncomplicated; F14.20 Cocaine dependence, uncomplicated; F19.282 Other psychoactive substance dependence with psychoactive substance-induced sleep disorder; F12.20 Cannabis dependence, uncomplicated; F17.210 Nicotine dependence, cigarettes, uncomplicated; F19.24 Other psychoactive substance dependence with psychoactive substance-induced mood disorder; F41.9 Anxiety disorder, unspecified; J43.9 Emphysema, unspecified; M54.50 Low back pain, unspecified; G89.29 Other chronic pain; Z99.89 Dependence on other enabling machines and devices; Z59.00 Homelessness unspecified
CPT/HCPCS: 36415; 80053; 82962; 85027; 86780; C9803-CS; U0003; U0005

== ENCOUNTER 2022-06-02 11:59 | Inpatient (IN) | payer MEDICARE, OTHER ==
[2022-06-02] MEDS ORDERED: LOPERAMIDE HCL 2 MG CAPSULE PO PRN (13:18)
[2022-06-02] MEDS ORDERED: P-EPHED 60MG/TRIPROLIDI 2.5MG TABLET PO PRN (13:18)
[2022-06-02] MEDS ORDERED: MAGNESIUM CITRATE 300 ML BOTTLE PO PRN (13:18)
[2022-06-02] MEDS ORDERED: guaiFENesin 200 MG/10 ML 10 ML UNIT-DOSE CUPS PO PRN (13:18)
[2022-06-02] MEDS ORDERED: NICOTINE 10 MG CARTRIDGE (INHALER) IH PRN (13:18)
[2022-06-02] MEDS ORDERED: MAGNESIUM HYDROX 2400MG/30ML ORAL SUSPENSION 30 ML CUP PO PRN (13:18)
[2022-06-02] MEDS ORDERED: MAG HYDROX/AL HYDROX/SIMETH 30 ML UNIT-DOSE CUP PO PRN (13:18)
[2022-06-02] MEDS: PRENATAL VITAMINS W/ FOLIC ACID TABLET (FP) PO SCH (14:31)
[2022-06-02] MEDS: NICOTINE 7 MG/24 HOURS TOPICAL PATCH TD SCH (14:31)
[2022-06-02] MEDS: IBUPROFEN 400 MG TABLET (FP) PO PRN (15:23)
[2022-06-02] MEDS: hydrOXYzine PAMOATE 25 MG CAPSULE (FP) PO SCH ×3 (15:37→21:15)
[2022-06-02] MEDS: GABAPENTIN 300 MG CAPSULE PO SCH ×2 (16:32→21:15)
[2022-06-02] MEDS: THIAMINE HCL 100 MG TABLET (FP) PO SCH (21:15)
[2022-06-02] MEDS: MELATONIN 5 MG TABLETS PO SCH (21:15)
[2022-06-03] MEDS: GABAPENTIN 300 MG CAPSULE PO SCH ×3 (06:04→21:07)
[2022-06-03] MEDS: methaDONE HCL 40 MG DISPERSABLE TABLET PO SCH (06:05)
[2022-06-03] MEDS: hydrOXYzine PAMOATE 25 MG CAPSULE (FP) PO SCH ×5 (06:05→21:06)
[2022-06-03 09:08] LABS: HEMATOCRIT 38.5 % (35.4-49); HEMOGLOBIN 13.1 GM/dL (11.7-16.9); MCH 31.8 pg (25.7-33.7); MCHC 33.9 g/dl (32.0-35.9); MEAN CELL VOLUME 93.5 fl (80-96); MEAN PLT VOLUME 7.5 fl (7.5-11.1); PLATELET COUNT 279 10^3/uL (134-434); RBC 4.11 M/mm3 (4.00-5.60); RDW 13.9 % (11.9-15.9); WHITE BLOOD COUNT 5.9 K/mm3 (4.0-10.0)
[2022-06-03 09:27] LABS: ALBUMIN 3.3 g/dl (3.4-5.0); CALCIUM 9.6 mg/dL (8.5-10.1)
[2022-06-03 09:30] LABS: CREATININE 0.7 mg/dL (0.55-1.3)
[2022-06-03 09:31] LABS: BILIRUBIN,TOTAL 0.3 mg/dL (0.2-1)
[2022-06-03 09:32] LABS: TOT PROT 6.5 g/dl (6.4-8.2)
[2022-06-03] MEDS: PRENATAL VITAMINS W/ FOLIC ACID TABLET (FP) PO SCH (09:55)
[2022-06-03] MEDS: NICOTINE 7 MG/24 HOURS TOPICAL PATCH TD SCH (09:56)
[2022-06-03] MEDS: IBUPROFEN 400 MG TABLET (FP) PO PRN ×2 (11:52→22:25)
[2022-06-03 12:01] LABS: PH,URINE 7.5 (5.0-8.0); URINE APPEARANCE CLEAR; URINE BILIRUBIN NEGATIVE (NEGATIVE); URINE COLOR YELLOW; URINE GLUCOSE (UA) NEGATIVE (NEGATIVE); URINE KETONE NEGATIVE (NEGATIVE); URINE LEUK ESTERASE NEGATIVE (NEGATIVE); URINE NITRITE NEGATIVE (NEGATIVE); URINE PROTEIN NEGATIVE (NEGATIVE); URINE UROBILINOGEN 0.2 mg/dL (0.2-1.0)
[2022-06-03 13:14] LABS: SYPHILIS W/ RPR CONF NON-REACTIVE (NONREACTIVE)
[2022-06-03] MEDS: MELATONIN 5 MG TABLETS PO SCH (21:06)
[2022-06-03] MEDS: THIAMINE HCL 100 MG TABLET (FP) PO SCH (21:06)
[2022-06-04] MEDS: ACETAMINOPHEN 325 MG TABLET (FP) PO PRN ×2 (02:18→13:50)
[2022-06-04] MEDS: GABAPENTIN 300 MG CAPSULE PO SCH ×3 (06:32→21:15)
[2022-06-04] MEDS: methaDONE HCL 40 MG DISPERSABLE TABLET PO SCH (06:33)
[2022-06-04] MEDS: hydrOXYzine PAMOATE 25 MG CAPSULE (FP) PO SCH ×5 (06:33→21:16)
[2022-06-04] MEDS: PRENATAL VITAMINS W/ FOLIC ACID TABLET (FP) PO SCH (10:16)
[2022-06-04] MEDS: NICOTINE 7 MG/24 HOURS TOPICAL PATCH TD SCH (10:16)
[2022-06-04] MEDS: IBUPROFEN 400 MG TABLET (FP) PO PRN (10:17)
[2022-06-04] MEDS: THIAMINE HCL 100 MG TABLET (FP) PO SCH (21:15)
[2022-06-04] MEDS: MELATONIN 5 MG TABLETS PO SCH (21:15)
[2022-06-05] MEDS: methaDONE HCL 40 MG DISPERSABLE TABLET PO SCH (06:11)
[2022-06-05] MEDS: GABAPENTIN 300 MG CAPSULE PO SCH ×3 (06:11→21:03)
[2022-06-05] MEDS: hydrOXYzine PAMOATE 25 MG CAPSULE (FP) PO SCH ×5 (06:11→21:03)
[2022-06-05] MEDS: NICOTINE 7 MG/24 HOURS TOPICAL PATCH TD SCH (10:03)
[2022-06-05] MEDS: PRENATAL VITAMINS W/ FOLIC ACID TABLET (FP) PO SCH (10:03)
[2022-06-05] MEDS: IBUPROFEN 400 MG TABLET (FP) PO PRN ×2 (10:04→21:05)
[2022-06-05] MEDS: ACETAMINOPHEN 325 MG TABLET (FP) PO PRN (13:15)
[2022-06-05] MEDS: MELATONIN 5 MG TABLETS PO SCH (21:03)
[2022-06-05] MEDS: THIAMINE HCL 100 MG TABLET (FP) PO SCH (21:03)
[2022-06-06] MEDS: methaDONE HCL 40 MG DISPERSABLE TABLET PO SCH (06:08)
[2022-06-06] MEDS: hydrOXYzine PAMOATE 25 MG CAPSULE (FP) PO SCH ×3 (06:08→14:17)
[2022-06-06] MEDS: GABAPENTIN 300 MG CAPSULE PO SCH ×3 (06:08→21:09)
[2022-06-06] MEDS: NICOTINE 7 MG/24 HOURS TOPICAL PATCH TD SCH (10:04)
[2022-06-06] MEDS: PRENATAL VITAMINS W/ FOLIC ACID TABLET (FP) PO SCH (10:04)
[2022-06-06] MEDS: IBUPROFEN 400 MG TABLET (FP) PO PRN (10:05)
[2022-06-06] MEDS ORDERED: hydrOXYzine PAMOATE 25 MG CAPSULE (FP) PO PRN (15:39)
[2022-06-06] MEDS: THIAMINE HCL 100 MG TABLET (FP) PO SCH (21:08)
[2022-06-06] MEDS: MELATONIN 5 MG TABLETS PO SCH (21:08)
[2022-06-07] MEDS: GABAPENTIN 300 MG CAPSULE PO SCH ×3 (06:12→21:12)
[2022-06-07] MEDS: methaDONE HCL 40 MG DISPERSABLE TABLET PO SCH (06:12)
[2022-06-07] MEDS: IBUPROFEN 400 MG TABLET (FP) PO PRN ×3 (06:14→21:13)
[2022-06-07] MEDS: PRENATAL VITAMINS W/ FOLIC ACID TABLET (FP) PO SCH (09:48)
[2022-06-07] MEDS: ACETAMINOPHEN 325 MG TABLET (FP) PO PRN (09:49)
[2022-06-07] MEDS: NICOTINE 7 MG/24 HOURS TOPICAL PATCH TD SCH (09:50)
[2022-06-07] MEDS: MELATONIN 5 MG TABLETS PO SCH (21:12)
[2022-06-07] MEDS: THIAMINE HCL 100 MG TABLET (FP) PO SCH (21:12)
[2022-06-08] MEDS: IBUPROFEN 400 MG TABLET (FP) PO PRN (06:10)
[2022-06-08] MEDS: GABAPENTIN 300 MG CAPSULE PO SCH ×3 (06:10→21:07)
[2022-06-08] MEDS: methaDONE HCL 40 MG DISPERSABLE TABLET PO SCH (06:10)
[2022-06-08] MEDS: PRENATAL VITAMINS W/ FOLIC ACID TABLET (FP) PO SCH (10:30)
[2022-06-08] MEDS: NICOTINE 7 MG/24 HOURS TOPICAL PATCH TD SCH (10:30)
[2022-06-08] MEDS: ACETAMINOPHEN 325 MG TABLET (FP) PO PRN (10:31)
[2022-06-08] MEDS ORDERED: LIDOCAINE 5% TOPICAL PATCH TP ONE (12:43)
[2022-06-08] MEDS: IBUPROFEN 600 MG TABLET (FP) PO PRN ×2 (13:58→21:09)
[2022-06-08] MEDS: LIDOCAINE 5% TOPICAL PATCH TP SCH (13:59)
[2022-06-08] MEDS: THIAMINE HCL 100 MG TABLET (FP) PO SCH (21:07)
[2022-06-08] MEDS: METHYL SALICYLATE/MENTHOL OINT 30 GM TUBE TP SCH (21:07)
[2022-06-08] MEDS: LIDOCAINE PATCH REMOVAL MC SCH ×2 (21:07)
[2022-06-08] MEDS: MELATONIN 5 MG TABLETS PO SCH (21:07)
[2022-06-08] MEDS ORDERED: LIDOCAINE PATCH REMOVAL MC SCH (22:00)
[2022-06-08] MEDS ORDERED: METHYL SALICYLATE/MENTHOL OINT 30 GM TUBE TP SCH (22:00)
[2022-06-09] MEDS: methaDONE HCL 40 MG DISPERSABLE TABLET PO SCH (06:19)
[2022-06-09] MEDS: GABAPENTIN 300 MG CAPSULE PO SCH ×3 (06:19→21:14)
[2022-06-09] MEDS: LIDOCAINE 5% TOPICAL PATCH TP SCH ×2 (10:16)
[2022-06-09] MEDS: NICOTINE 7 MG/24 HOURS TOPICAL PATCH TD SCH (10:16)
[2022-06-09] MEDS: PRENATAL VITAMINS W/ FOLIC ACID TABLET (FP) PO SCH (10:16)
[2022-06-09] MEDS: IBUPROFEN 600 MG TABLET (FP) PO PRN ×2 (14:10→21:14)
[2022-06-09] MEDS: THIAMINE HCL 100 MG TABLET (FP) PO SCH (21:14)
[2022-06-09] MEDS: MELATONIN 5 MG TABLETS PO SCH (21:14)
[2022-06-09] MEDS: LIDOCAINE PATCH REMOVAL MC SCH ×2 (21:14→21:15)
[2022-06-09] MEDS: METHYL SALICYLATE/MENTHOL OINT 30 GM TUBE TP SCH (21:16)
[2022-06-10] MEDS: GABAPENTIN 300 MG CAPSULE PO SCH ×3 (06:16→21:12)
[2022-06-10] MEDS: methaDONE HCL 40 MG DISPERSABLE TABLET PO SCH (06:16)
[2022-06-10] MEDS: PRENATAL VITAMINS W/ FOLIC ACID TABLET (FP) PO SCH (10:02)
[2022-06-10] MEDS: IBUPROFEN 600 MG TABLET (FP) PO PRN ×2 (10:04→21:13)
[2022-06-10] MEDS: LIDOCAINE 5% TOPICAL PATCH TP SCH ×2 (11:58)
[2022-06-10] MEDS: NICOTINE 7 MG/24 HOURS TOPICAL PATCH TD SCH (11:59)
[2022-06-10] MEDS: ACETAMINOPHEN 325 MG TABLET (FP) PO PRN (14:11)
[2022-06-10] MEDS: MELATONIN 5 MG TABLETS PO SCH (21:12)
[2022-06-10] MEDS: THIAMINE HCL 100 MG TABLET (FP) PO SCH (21:12)
[2022-06-10] MEDS: LIDOCAINE PATCH REMOVAL MC SCH ×2 (21:20)
[2022-06-10] MEDS: METHYL SALICYLATE/MENTHOL OINT 30 GM TUBE TP SCH (21:20)
[2022-06-11] MEDS: methaDONE HCL 40 MG DISPERSABLE TABLET PO SCH (06:17)
[2022-06-11] MEDS: GABAPENTIN 300 MG CAPSULE PO SCH ×3 (06:17→21:12)
[2022-06-11] MEDS: IBUPROFEN 600 MG TABLET (FP) PO PRN ×2 (09:50→15:36)
[2022-06-11] MEDS: LIDOCAINE 5% TOPICAL PATCH TP SCH ×2 (09:51→09:52)
[2022-06-11] MEDS: NICOTINE 7 MG/24 HOURS TOPICAL PATCH TD SCH (09:52)
[2022-06-11] MEDS: PRENATAL VITAMINS W/ FOLIC ACID TABLET (FP) PO SCH (09:52)
[2022-06-11] MEDS: THIAMINE HCL 100 MG TABLET (FP) PO SCH (21:12)
[2022-06-11] MEDS: LIDOCAINE PATCH REMOVAL MC SCH ×2 (21:12→21:13)
[2022-06-11] MEDS: MELATONIN 5 MG TABLETS PO SCH (21:12)
[2022-06-11] MEDS: METHYL SALICYLATE/MENTHOL OINT 30 GM TUBE TP SCH (21:13)
[2022-06-12] MEDS: methaDONE HCL 40 MG DISPERSABLE TABLET PO SCH (06:06)
[2022-06-12] MEDS: GABAPENTIN 300 MG CAPSULE PO SCH ×3 (06:06→21:07)
[2022-06-12] MEDS: IBUPROFEN 600 MG TABLET (FP) PO PRN ×2 (06:06→14:39)
[2022-06-12] MEDS: LIDOCAINE 5% TOPICAL PATCH TP SCH ×2 (10:11)
[2022-06-12] MEDS: PRENATAL VITAMINS W/ FOLIC ACID TABLET (FP) PO SCH (10:12)
[2022-06-12] MEDS: NICOTINE 7 MG/24 HOURS TOPICAL PATCH TD SCH (10:12)
[2022-06-12] MEDS: MELATONIN 5 MG TABLETS PO SCH (21:07)
[2022-06-12] MEDS: THIAMINE HCL 100 MG TABLET (FP) PO SCH (21:07)
[2022-06-12] MEDS: LIDOCAINE PATCH REMOVAL MC SCH ×2 (21:08→23:50)
[2022-06-12] MEDS: METHYL SALICYLATE/MENTHOL OINT 30 GM TUBE TP SCH (21:08)
[2022-06-13] MEDS: methaDONE HCL 40 MG DISPERSABLE TABLET PO SCH (06:19)
[2022-06-13] MEDS: IBUPROFEN 600 MG TABLET (FP) PO PRN ×3 (06:19→21:19)
[2022-06-13] MEDS: GABAPENTIN 300 MG CAPSULE PO SCH ×3 (06:19→21:19)
[2022-06-13] MEDS: LIDOCAINE 5% TOPICAL PATCH TP SCH ×2 (10:10)
[2022-06-13] MEDS: PRENATAL VITAMINS W/ FOLIC ACID TABLET (FP) PO SCH (10:10)
[2022-06-13] MEDS: NICOTINE 7 MG/24 HOURS TOPICAL PATCH TD SCH (10:10)
[2022-06-13] MEDS: ACETAMINOPHEN 325 MG TABLET (FP) PO PRN (10:12)
[2022-06-13] MEDS: MELATONIN 5 MG TABLETS PO SCH (21:19)
[2022-06-13] MEDS: THIAMINE HCL 100 MG TABLET (FP) PO SCH (21:19)
[2022-06-13] MEDS: METHYL SALICYLATE/MENTHOL OINT 30 GM TUBE TP SCH (21:37)
[2022-06-13] MEDS: LIDOCAINE PATCH REMOVAL MC SCH ×2 (21:37→21:38)
[2022-06-14] MEDS: methaDONE HCL 40 MG DISPERSABLE TABLET PO SCH (06:06)
[2022-06-14] MEDS: IBUPROFEN 600 MG TABLET (FP) PO PRN ×3 (06:07→21:06)
[2022-06-14] MEDS: GABAPENTIN 300 MG CAPSULE PO SCH ×3 (06:07→21:06)
[2022-06-14 06:36] VITALS: BP 145/87
[2022-06-14] MEDS: LIDOCAINE 5% TOPICAL PATCH TP SCH ×2 (10:09→10:10)
[2022-06-14] MEDS: NICOTINE 7 MG/24 HOURS TOPICAL PATCH TD SCH (10:10)
[2022-06-14] MEDS: PRENATAL VITAMINS W/ FOLIC ACID TABLET (FP) PO SCH (10:10)
[2022-06-14] MEDS: METHYL SALICYLATE/MENTHOL OINT 30 GM TUBE TP SCH (21:05)
[2022-06-14] MEDS: LIDOCAINE PATCH REMOVAL MC SCH ×2 (21:05)
[2022-06-14] MEDS: THIAMINE HCL 100 MG TABLET (FP) PO SCH (21:06)
[2022-06-14] MEDS: MELATONIN 5 MG TABLETS PO SCH (21:06)
[2022-06-15] MEDS: methaDONE HCL 40 MG DISPERSABLE TABLET PO SCH (06:22)
[2022-06-15] MEDS: IBUPROFEN 600 MG TABLET (FP) PO PRN (06:22)
[2022-06-15] MEDS: GABAPENTIN 300 MG CAPSULE PO SCH (06:22)
[2022-06-15 08:01] VITALS: PULSE 58; TEMP 97.7
[2022-06-15] MEDS: NICOTINE 7 MG/24 HOURS TOPICAL PATCH TD SCH (09:25)
[2022-06-15] MEDS: LIDOCAINE 5% TOPICAL PATCH TP SCH ×2 (09:25)
[2022-06-15] MEDS: PRENATAL VITAMINS W/ FOLIC ACID TABLET (FP) PO SCH (09:25)
== END 2022-06-15 09:39 | disposition home or self-care (01) | DRG 895 ==
LOC: YASAS 11:59 → Y3E 12:00
PROVIDERS: ADMIT Allergy & Immunology; ATTEND Psychiatry & Neurology Pain Medicine
PROC: HZ42ZZZ Group Counseling for Substance Abuse Treatment, Cognitive-Behavioral (ICD-10-PCS; principal; 2022-06-02)
DX: F10.20 Alcohol dependence, uncomplicated (principal); F11.20 Opioid dependence, uncomplicated; F14.20 Cocaine dependence, uncomplicated; F13.20 Sedative, hypnotic or anxiolytic dependence, uncomplicated; F12.20 Cannabis dependence, uncomplicated; F17.210 Nicotine dependence, cigarettes, uncomplicated; F31.9 Bipolar disorder, unspecified; F41.9 Anxiety disorder, unspecified; J43.9 Emphysema, unspecified; M15.9 Polyosteoarthritis, unspecified; M54.50 Low back pain, unspecified; G89.29 Other chronic pain; Z99.89 Dependence on other enabling machines and devices; Z59.00 Homelessness unspecified
CPT/HCPCS: 36415; 80053; 81003; 85027; 86780; 86803; 87522

== ENCOUNTER 2022-07-16 10:14 | Inpatient (IN) | payer MEDICARE, OTHER ==
[2022-07-16 12:17] VITALS: BMI 22.8
[2022-07-16] MEDS ORDERED: NICOTINE 10 MG CARTRIDGE (INHALER) IH PRN (13:37)
[2022-07-16] MEDS ORDERED: NALOXONE HCL (KLOXXADO) 8 MG SPRAY NS PRN (13:37)
[2022-07-16] MEDS ORDERED: BENZOCAINE/MENTHOL (CHLORASEPTIC ) LOZENGE MM PRN (13:37)
[2022-07-16] MEDS ORDERED: IBUPROFEN 400 MG TABLET (FP) PO PRN (13:37)
[2022-07-16] MEDS ORDERED: MAG HYDROX/AL HYDROX/SIMETH 30 ML UNIT-DOSE CUP PO PRN (13:37)
[2022-07-16] MEDS ORDERED: ONDANSETRON *ODT* 4 MG TABLET SL PRN (13:37)
[2022-07-16] MEDS ORDERED: BISMUTH SUBSALICYLATE 524 MG/30 ML PO PRN (13:37)
[2022-07-16] MEDS ORDERED: ACETAMINOPHEN 325 MG TABLET (FP) PO PRN ×2 (13:37)
[2022-07-16] MEDS ORDERED: LOPERAMIDE HCL 2 MG CAPSULE PO PRN (13:37)
[2022-07-16] MEDS ORDERED: DICYCLOMINE HCL 10 MG CAPSULE PO PRN (13:37)
[2022-07-16] MEDS ORDERED: MAGNESIUM HYDROX 2400MG/30ML ORAL SUSPENSION 30 ML CUP PO PRN (13:37)
[2022-07-16] MEDS ORDERED: MAGNESIUM CITRATE 300 ML BOTTLE PO PRN (13:37)
[2022-07-16] MEDS: hydrOXYzine PAMOATE 25 MG CAPSULE (FP) PO SCH ×3 (14:56→22:17)
[2022-07-16] MEDS: IBUPROFEN 600 MG TABLET (FP) PO PRN ×2 (14:57→22:18)
[2022-07-16] MEDS: PRENATAL VITAMINS W/ FOLIC ACID TABLET (FP) PO SCH (14:57)
[2022-07-16] MEDS: diazePAM 5 MG TABLET PO PRN (14:58)
[2022-07-16] MEDS: NICOTINE 14 MG/24 HOURS TOPICAL PATCH TD SCH (14:59)
[2022-07-16 16:15] LABS: HEMATOCRIT 38.2 % (35.4-49); HEMOGLOBIN 13.1 GM/dL (11.7-16.9); MCH 32.4 pg (25.7-33.7); MCHC 34.3 g/dl (32.0-35.9); MEAN CELL VOLUME 94.5 fl (80-96); MEAN PLT VOLUME 7.4 fl (7.5-11.1); PLATELET COUNT 351 10^3/uL (134-434); RBC 4.04 M/mm3 (4.00-5.60); RDW 14.7 % (11.9-15.9); WHITE BLOOD COUNT 6.7 K/mm3 (4.0-10.0)
[2022-07-16 16:26] LABS: CALCIUM 9.5 mg/dL (8.5-10.1)
[2022-07-16 16:27] LABS: BLOOD UREA NITROGEN 22.2 mg/dL (7-18)
[2022-07-16 16:30] LABS: CREATININE 0.8 mg/dL (0.55-1.3)
[2022-07-16 16:31] LABS: BILIRUBIN,TOTAL 0.5 mg/dL (0.2-1)
[2022-07-16 16:32] LABS: TOT PROT 7.4 g/dl (6.4-8.2)
[2022-07-16] MEDS: diazePAM 5 MG TABLET PO SCH ×2 (18:46→22:15)
[2022-07-16] MEDS: traZODone HCL 100 MG TABLET (FP) PO SCH (22:15)
[2022-07-16] MEDS: THIAMINE HCL 100 MG TABLET (FP) PO SCH (22:16)
[2022-07-16] MEDS: MELATONIN 5 MG TABLETS PO SCH (22:19)
[2022-07-17] MEDS: diazePAM 5 MG TABLET PO SCH ×4 (05:09→22:08)
[2022-07-17] MEDS: hydrOXYzine PAMOATE 25 MG CAPSULE (FP) PO SCH ×5 (05:10→22:09)
[2022-07-17] MEDS: methaDONE HCL 40 MG DISPERSABLE TABLET PO SCH (10:51)
[2022-07-17] MEDS: NICOTINE 14 MG/24 HOURS TOPICAL PATCH TD SCH (10:53)
[2022-07-17] MEDS: PRENATAL VITAMINS W/ FOLIC ACID TABLET (FP) PO SCH (10:54)
[2022-07-17] MEDS: METHOCARBAMOL 500 MG TABLET PO PRN (14:06)
[2022-07-17] MEDS: IBUPROFEN 600 MG TABLET (FP) PO PRN ×2 (14:06→22:07)
[2022-07-17] MEDS: traZODone HCL 100 MG TABLET (FP) PO SCH (22:07)
[2022-07-17] MEDS: MELATONIN 5 MG TABLETS PO SCH (22:08)
[2022-07-17] MEDS: THIAMINE HCL 100 MG TABLET (FP) PO SCH (22:09)
[2022-07-18] MEDS: hydrOXYzine PAMOATE 25 MG CAPSULE (FP) PO SCH ×5 (05:46→23:18)
[2022-07-18] MEDS: methaDONE HCL 40 MG DISPERSABLE TABLET PO SCH (05:46)
[2022-07-18] MEDS: diazePAM 5 MG TABLET PO SCH ×3 (05:46→22:08)
[2022-07-18] MEDS: PRENATAL VITAMINS W/ FOLIC ACID TABLET (FP) PO SCH (10:22)
[2022-07-18] MEDS: NICOTINE 14 MG/24 HOURS TOPICAL PATCH TD SCH (10:22)
[2022-07-18] MEDS: IBUPROFEN 600 MG TABLET (FP) PO PRN ×2 (10:24→22:09)
[2022-07-18] MEDS: diazePAM 5 MG TABLET PO PRN (10:25)
[2022-07-18] MEDS: METHOCARBAMOL 500 MG TABLET PO PRN (16:34)
[2022-07-18] MEDS: MELATONIN 5 MG TABLETS PO SCH (22:08)
[2022-07-18] MEDS: traZODone HCL 100 MG TABLET (FP) PO SCH (22:08)
[2022-07-18] MEDS: THIAMINE HCL 100 MG TABLET (FP) PO SCH (22:08)
[2022-07-19] MEDS: diazePAM 5 MG TABLET PO SCH ×2 (05:34→18:35)
[2022-07-19] MEDS: methaDONE HCL 40 MG DISPERSABLE TABLET PO SCH (05:34)
[2022-07-19] MEDS: hydrOXYzine PAMOATE 25 MG CAPSULE (FP) PO SCH ×5 (05:36→22:07)
[2022-07-19] MEDS: IBUPROFEN 600 MG TABLET (FP) PO PRN ×2 (09:06→22:08)
[2022-07-19] MEDS: diazePAM 5 MG TABLET PO PRN (09:07)
[2022-07-19] MEDS: METHOCARBAMOL 500 MG TABLET PO PRN (09:07)
[2022-07-19] MEDS: PRENATAL VITAMINS W/ FOLIC ACID TABLET (FP) PO SCH (09:08)
[2022-07-19] MEDS: NICOTINE 14 MG/24 HOURS TOPICAL PATCH TD SCH (09:08)
[2022-07-19 13:23] VITALS: RESP 18
[2022-07-19] MEDS: traZODone HCL 100 MG TABLET (FP) PO SCH (22:05)
[2022-07-19] MEDS: THIAMINE HCL 100 MG TABLET (FP) PO SCH (22:05)
[2022-07-19] MEDS: MELATONIN 5 MG TABLETS PO SCH (22:06)
[2022-07-20] MEDS ORDERED: diazePAM 5 MG TABLET PO ONE (06:00)
[2022-07-20] MEDS: methaDONE HCL 40 MG DISPERSABLE TABLET PO SCH (07:20)
[2022-07-20] MEDS: hydrOXYzine PAMOATE 25 MG CAPSULE (FP) PO SCH ×2 (07:20→10:36)
[2022-07-20 09:17] VITALS: BP 106/67; PULSE 57; TEMP 97.6
[2022-07-20] MEDS: NICOTINE 14 MG/24 HOURS TOPICAL PATCH TD SCH (10:35)
[2022-07-20] MEDS: PRENATAL VITAMINS W/ FOLIC ACID TABLET (FP) PO SCH (10:36)
== END 2022-07-20 11:09 | disposition other institution (70) | DRG 897 ==
LOC: YASAS 10:14 → Y6N 13:57
PROVIDERS: ADMIT Allergy & Immunology; ATTEND Surgery
PROC: HZ2ZZZZ Detoxification Services for Substance Abuse Treatment (ICD-10-PCS; principal; 2022-07-16)
DX: F10.230 Alcohol dependence with withdrawal, uncomplicated (principal); F11.20 Opioid dependence, uncomplicated; F14.20 Cocaine dependence, uncomplicated; F19.282 Other psychoactive substance dependence with psychoactive substance-induced sleep disorder; F13.230 Sedative, hypnotic or anxiolytic dependence with withdrawal, uncomplicated; F12.20 Cannabis dependence, uncomplicated; F17.210 Nicotine dependence, cigarettes, uncomplicated; F19.24 Other psychoactive substance dependence with psychoactive substance-induced mood disorder; F41.9 Anxiety disorder, unspecified; G47.00 Insomnia, unspecified; G47.30 Sleep apnea, unspecified; J43.9 Emphysema, unspecified; M54.50 Low back pain, unspecified; G89.29 Other chronic pain; Z99.89 Dependence on other enabling machines and devices
CPT/HCPCS: 36415; 80053; 85027; 86780; C9803-CS; U0003; U0005

== ENCOUNTER 2023-03-21 14:00 | Inpatient (IN) | payer MEDICARE, OTHER ==
[2023-03-21 14:44] VITALS: BMI 25.5
[2023-03-21] MEDS ORDERED: COLLOIDAL OATMEAL 1 BAR EACH TP PRN (15:14)
[2023-03-21] MEDS ORDERED: LOPERAMIDE HCL 2 MG CAPSULE PO PRN (15:14)
[2023-03-21] MEDS ORDERED: NALOXONE HCL (KLOXXADO) 8 MG SPRAY NS PRN (15:14)
[2023-03-21] MEDS ORDERED: NALOXONE HCL 0.4 MG/ML VIAL IM PRN (15:14)
[2023-03-21] MEDS ORDERED: AMMONIUM LACTATE 12% LOTION 225 GM BOTTLE TP PRN (15:14)
[2023-03-21] MEDS ORDERED: POLYETHYLENE GLYCOL (HEALTHYLAX) 3350 17 GM PACKET PO PRN (15:14)
[2023-03-21] MEDS ORDERED: MAG HYDROX/AL HYDROX/SIMETH 30 ML UNIT-DOSE CUP PO PRN (15:14)
[2023-03-21] MEDS ORDERED: NICOTINE 10 MG CARTRIDGE (INHALER) IH PRN (15:14)
[2023-03-21] MEDS ORDERED: guaiFENesin 600 MG TABLET.ER (FP) PO PRN (15:14)
[2023-03-21] MEDS ORDERED: hydrOXYzine PAMOATE 25 MG CAPSULE (FP) PO PRN (15:14)
[2023-03-21] MEDS ORDERED: IBUPROFEN 400 MG TABLET (FP) PO PRN (15:14)
[2023-03-21] MEDS ORDERED: BENZOCAINE/MENTHOL (CHLORASEPTIC ) LOZENGE MM PRN (15:14)
[2023-03-21] MEDS ORDERED: BENZONATATE 200 MG CAPSULE PO PRN (15:14)
[2023-03-21] MEDS ORDERED: PRENATAL VITAMINS W/ FOLIC ACID TABLET (FP) PO ONE (17:05)
[2023-03-21] MEDS: PRENATAL VITAMINS W/ FOLIC ACID TABLET (FP) PO SCH (17:23)
[2023-03-21] MEDS: GABAPENTIN 300 MG CAPSULE PO SCH (21:44)
[2023-03-21] MEDS: THIAMINE HCL 100 MG TABLET (FP) PO SCH (21:44)
[2023-03-21] MEDS ORDERED: MELATONIN 5 MG TABLETS PO SCH (22:00)
[2023-03-22] MEDS: GABAPENTIN 300 MG CAPSULE PO SCH ×3 (06:43→21:36)
[2023-03-22] MEDS: NICOTINE 14 MG/24 HOURS TOPICAL PATCH TD SCH (10:37)
[2023-03-22] MEDS: PRENATAL VITAMINS W/ FOLIC ACID TABLET (FP) PO SCH (10:37)
[2023-03-22] MEDS ORDERED: methaDONE HCL 40 MG DISPERSABLE TABLET PO ONE (10:45)
[2023-03-22 12:05] LABS: HEMATOCRIT 30.6 % (35.4-49); HEMOGLOBIN 9.8 GM/dL (11.7-16.9); MCH 24.4 pg (25.7-33.7); MCHC 32.1 g/dl (32.0-35.9); MEAN PLT VOLUME 7.9 fl (7.5-11.1); PLATELET COUNT 254 10^3/uL (134-434); RBC 4.03 M/mm3 (4.00-5.60); RDW 17.7 % (11.9-15.9)
[2023-03-22 12:06] LABS: POTASSIUM 3.4 mmol/L (3.5-5.1)
[2023-03-22 12:08] LABS: ALBUMIN 2.7 g/dl (3.4-5.0); BLOOD UREA NITROGEN 6.4 mg/dL (7-18); CALCIUM 8.2 mg/dL (8.5-10.1)
[2023-03-22 12:11] LABS: CREATININE 0.6 mg/dL (0.55-1.3)
[2023-03-22 12:13] LABS: BILIRUBIN,TOTAL 0.1 mg/dL (0.2-1); TOT PROT 5.5 g/dl (6.4-8.2)
[2023-03-22 12:33] LABS: SYPHILIS W/ RPR CONF NON-REACTIVE (NONREACTIVE)
[2023-03-22] MEDS ORDERED: POTASSIUM CHLORIDE ORAL LIQUID 20 MEQ/15 ML PO ONE (14:15)
[2023-03-22] MEDS: THIAMINE HCL 100 MG TABLET (FP) PO SCH (21:36)
[2023-03-22] MEDS: QUEtiapine FUMARATE 50 MG TABLET PO PRN (21:36)
[2023-03-23] MEDS: methaDONE HCL 40 MG DISPERSABLE TABLET PO SCH (06:17)
[2023-03-23] MEDS: GABAPENTIN 300 MG CAPSULE PO SCH ×3 (06:17→21:27)
[2023-03-23] MEDS: NICOTINE 14 MG/24 HOURS TOPICAL PATCH TD SCH (09:33)
[2023-03-23] MEDS: PRENATAL VITAMINS W/ FOLIC ACID TABLET (FP) PO SCH (09:33)
[2023-03-23] MEDS: FERROUS SO4 325 MG TABLET (FP) PO SCH (11:51)
[2023-03-23 12:21] LABS: BASO % 0.5 % (0-2.0); EOS % 1.7 % (0-4.5); HEMATOCRIT 30.8 % (35.4-49); HEMOGLOBIN 9.7 GM/dL (11.7-16.9); LYMPH % 25.9 % (8-40); MCH 23.9 pg (25.7-33.7); MCHC 31.4 g/dl (32.0-35.9); MEAN CELL VOLUME 76.2 fl (80-96); MEAN PLT VOLUME 7.9 fl (7.5-11.1); MONO % 10.3 % (3.8-10.2); NEUT % 61.6 % (42.8-82.8); PLATELET COUNT 238 10^3/uL (134-434); RBC 4.04 M/mm3 (4.00-5.60); RDW 17.8 % (11.9-15.9); WHITE BLOOD COUNT 5.4 K/mm3 (4.0-10.0)
[2023-03-23] MEDS: QUEtiapine FUMARATE 50 MG TABLET PO PRN (21:27)
[2023-03-23] MEDS: THIAMINE HCL 100 MG TABLET (FP) PO SCH (21:27)
[2023-03-24] MEDS: GABAPENTIN 300 MG CAPSULE PO SCH ×3 (06:07→21:12)
[2023-03-24] MEDS: methaDONE HCL 40 MG DISPERSABLE TABLET PO SCH (06:07)
[2023-03-24] MEDS: FERROUS SO4 325 MG TABLET (FP) PO SCH (10:27)
[2023-03-24] MEDS: NICOTINE 14 MG/24 HOURS TOPICAL PATCH TD SCH (10:27)
[2023-03-24] MEDS: PRENATAL VITAMINS W/ FOLIC ACID TABLET (FP) PO SCH (10:27)
[2023-03-24] MEDS: THIAMINE HCL 100 MG TABLET (FP) PO SCH (21:12)
[2023-03-24] MEDS: QUEtiapine FUMARATE 50 MG TABLET PO PRN (21:12)
[2023-03-25] MEDS: GABAPENTIN 300 MG CAPSULE PO SCH ×3 (06:15→21:00)
[2023-03-25] MEDS: methaDONE HCL 40 MG DISPERSABLE TABLET PO SCH (06:15)
[2023-03-25] MEDS: MAGNESIUM HYDROX 2400MG/30ML ORAL SUSPENSION 30 ML CUP PO PRN (09:44)
[2023-03-25] MEDS: IBUPROFEN 600 MG TABLET (FP) PO PRN ×2 (09:45→16:51)
[2023-03-25] MEDS: FERROUS SO4 325 MG TABLET (FP) PO SCH (10:14)
[2023-03-25] MEDS: PRENATAL VITAMINS W/ FOLIC ACID TABLET (FP) PO SCH (10:14)
[2023-03-25] MEDS: NICOTINE 14 MG/24 HOURS TOPICAL PATCH TD SCH (10:16)
[2023-03-25 15:49] LABS: URINE APPEARANCE CLEAR; URINE BILIRUBIN NEGATIVE (NEGATIVE); URINE COLOR YELLOW; URINE GLUCOSE (UA) NEGATIVE (NEGATIVE); URINE KETONE NEGATIVE (NEGATIVE); URINE LEUK ESTERASE NEGATIVE (NEGATIVE); URINE NITRITE NEGATIVE (NEGATIVE); URINE PROTEIN NEGATIVE (NEGATIVE); URINE UROBILINOGEN 0.2 mg/dL (0.2-1.0)
[2023-03-25] MEDS ORDERED: METHYL SALICYLATE/MENTHOL OINT 30 GM TUBE TP PRN (16:31)
[2023-03-25] MEDS: LIDOCAINE 5% TOPICAL PATCH TP SCH (16:48)
[2023-03-25] MEDS: THIAMINE HCL 100 MG TABLET (FP) PO SCH (21:00)
[2023-03-25] MEDS: QUEtiapine FUMARATE 50 MG TABLET PO PRN (21:00)
[2023-03-25] MEDS ORDERED: METHYL SALICYLATE/MENTHOL OINT 30 GM TUBE TP SCH (22:00)
[2023-03-25] MEDS: LIDOCAINE PATCH REMOVAL MC SCH (22:40)
[2023-03-26] MEDS: methaDONE HCL 40 MG DISPERSABLE TABLET PO SCH (06:15)
[2023-03-26] MEDS: GABAPENTIN 300 MG CAPSULE PO SCH ×3 (06:15→21:09)
[2023-03-26] MEDS: FERROUS SO4 325 MG TABLET (FP) PO SCH (09:35)
[2023-03-26] MEDS: LIDOCAINE 5% TOPICAL PATCH TP SCH (09:35)
[2023-03-26] MEDS: NICOTINE 14 MG/24 HOURS TOPICAL PATCH TD SCH (09:35)
[2023-03-26] MEDS: PRENATAL VITAMINS W/ FOLIC ACID TABLET (FP) PO SCH (09:35)
[2023-03-26] MEDS: THIAMINE HCL 100 MG TABLET (FP) PO SCH (21:09)
[2023-03-26] MEDS: QUEtiapine FUMARATE 50 MG TABLET PO PRN (21:09)
[2023-03-26] MEDS: LIDOCAINE PATCH REMOVAL MC SCH (22:49)
[2023-03-27] MEDS: methaDONE HCL 40 MG DISPERSABLE TABLET PO SCH (06:11)
[2023-03-27] MEDS: GABAPENTIN 300 MG CAPSULE PO SCH ×3 (06:12→21:13)
[2023-03-27] MEDS: LIDOCAINE 5% TOPICAL PATCH TP SCH (09:39)
[2023-03-27] MEDS: PRENATAL VITAMINS W/ FOLIC ACID TABLET (FP) PO SCH (09:39)
[2023-03-27] MEDS: NICOTINE 14 MG/24 HOURS TOPICAL PATCH TD SCH (09:39)
[2023-03-27] MEDS: FERROUS SO4 325 MG TABLET (FP) PO SCH (09:39)
[2023-03-27] MEDS: THIAMINE HCL 100 MG TABLET (FP) PO SCH (21:13)
[2023-03-27] MEDS: QUEtiapine FUMARATE 50 MG TABLET PO PRN (21:13)
[2023-03-27] MEDS: LIDOCAINE PATCH REMOVAL MC SCH (21:14)
[2023-03-28] MEDS: methaDONE HCL 40 MG DISPERSABLE TABLET PO SCH (06:15)
[2023-03-28] MEDS: GABAPENTIN 300 MG CAPSULE PO SCH ×3 (06:16→21:04)
[2023-03-28] MEDS: PRENATAL VITAMINS W/ FOLIC ACID TABLET (FP) PO SCH (09:33)
[2023-03-28] MEDS: LIDOCAINE 5% TOPICAL PATCH TP SCH (09:34)
[2023-03-28] MEDS: NICOTINE 14 MG/24 HOURS TOPICAL PATCH TD SCH (09:34)
[2023-03-28] MEDS: FERROUS SO4 325 MG TABLET (FP) PO SCH (09:34)
[2023-03-28] MEDS: IBUPROFEN 600 MG TABLET (FP) PO PRN (09:35)
[2023-03-28] MEDS: ACETAMINOPHEN 325 MG TABLET (FP) PO PRN (13:45)
[2023-03-28] MEDS: MAGNESIUM HYDROX 2400MG/30ML ORAL SUSPENSION 30 ML CUP PO PRN (16:05)
[2023-03-28] MEDS: QUEtiapine FUMARATE 50 MG TABLET PO PRN (21:04)
[2023-03-28] MEDS: THIAMINE HCL 100 MG TABLET (FP) PO SCH (21:04)
[2023-03-28] MEDS: LIDOCAINE PATCH REMOVAL MC SCH (21:05)
[2023-03-29] MEDS: methaDONE HCL 40 MG DISPERSABLE TABLET PO SCH (06:25)
[2023-03-29] MEDS: GABAPENTIN 300 MG CAPSULE PO SCH ×3 (06:25→21:07)
[2023-03-29] MEDS: PRENATAL VITAMINS W/ FOLIC ACID TABLET (FP) PO SCH (09:43)
[2023-03-29] MEDS: NICOTINE 14 MG/24 HOURS TOPICAL PATCH TD SCH (09:43)
[2023-03-29] MEDS: FERROUS SO4 325 MG TABLET (FP) PO SCH (09:43)
[2023-03-29] MEDS: LIDOCAINE 5% TOPICAL PATCH TP SCH (09:43)
[2023-03-29] MEDS: IBUPROFEN 600 MG TABLET (FP) PO PRN (09:44)
[2023-03-29] MEDS: ACETAMINOPHEN 325 MG TABLET (FP) PO PRN (21:07)
[2023-03-29] MEDS: THIAMINE HCL 100 MG TABLET (FP) PO SCH (21:07)
[2023-03-29] MEDS: QUEtiapine FUMARATE 50 MG TABLET PO PRN (21:07)
[2023-03-29] MEDS: LIDOCAINE PATCH REMOVAL MC SCH (22:43)
[2023-03-30] MEDS: methaDONE HCL 40 MG DISPERSABLE TABLET PO SCH (05:55)
[2023-03-30] MEDS: GABAPENTIN 300 MG CAPSULE PO SCH ×3 (06:00→21:04)
[2023-03-30] MEDS: IBUPROFEN 600 MG TABLET (FP) PO PRN ×2 (09:47→21:04)
[2023-03-30] MEDS: FERROUS SO4 325 MG TABLET (FP) PO SCH (09:48)
[2023-03-30] MEDS: PRENATAL VITAMINS W/ FOLIC ACID TABLET (FP) PO SCH (09:48)
[2023-03-30] MEDS: LIDOCAINE 5% TOPICAL PATCH TP SCH (09:49)
[2023-03-30] MEDS: NICOTINE 14 MG/24 HOURS TOPICAL PATCH TD SCH (09:50)
[2023-03-30] MEDS: QUEtiapine FUMARATE 50 MG TABLET PO PRN (21:04)
[2023-03-30] MEDS: THIAMINE HCL 100 MG TABLET (FP) PO SCH (21:04)
[2023-03-30] MEDS: LIDOCAINE PATCH REMOVAL MC SCH (23:33)
[2023-03-31] MEDS: methaDONE HCL 40 MG DISPERSABLE TABLET PO SCH (06:13)
[2023-03-31] MEDS: GABAPENTIN 300 MG CAPSULE PO SCH ×3 (06:13→21:04)
[2023-03-31] MEDS: FERROUS SO4 325 MG TABLET (FP) PO SCH (09:35)
[2023-03-31] MEDS: NICOTINE 14 MG/24 HOURS TOPICAL PATCH TD SCH (09:35)
[2023-03-31] MEDS: LIDOCAINE 5% TOPICAL PATCH TP SCH (09:35)
[2023-03-31] MEDS: PRENATAL VITAMINS W/ FOLIC ACID TABLET (FP) PO SCH (09:35)
[2023-03-31] MEDS: ACETAMINOPHEN 325 MG TABLET (FP) PO PRN ×2 (09:36→21:04)
[2023-03-31] MEDS: THIAMINE HCL 100 MG TABLET (FP) PO SCH (21:04)
[2023-03-31] MEDS: QUEtiapine FUMARATE 50 MG TABLET PO PRN (21:04)
[2023-03-31] MEDS: LIDOCAINE PATCH REMOVAL MC SCH (21:04)
[2023-04-01] MEDS: GABAPENTIN 300 MG CAPSULE PO SCH ×3 (05:56→21:07)
[2023-04-01] MEDS: methaDONE HCL 40 MG DISPERSABLE TABLET PO SCH (05:56)
[2023-04-01] MEDS: LIDOCAINE 5% TOPICAL PATCH TP SCH (09:36)
[2023-04-01] MEDS: NICOTINE 14 MG/24 HOURS TOPICAL PATCH TD SCH (09:36)
[2023-04-01] MEDS: PRENATAL VITAMINS W/ FOLIC ACID TABLET (FP) PO SCH (09:36)
[2023-04-01] MEDS: FERROUS SO4 325 MG TABLET (FP) PO SCH (09:36)
[2023-04-01] MEDS: METHOCARBAMOL 500 MG TABLET PO PRN ×2 (10:26→21:07)
[2023-04-01] MEDS: LIDOCAINE PATCH REMOVAL MC SCH (21:05)
[2023-04-01] MEDS: THIAMINE HCL 100 MG TABLET (FP) PO SCH (21:07)
[2023-04-01] MEDS: QUEtiapine FUMARATE 50 MG TABLET PO PRN (21:08)
[2023-04-01] MEDS: ACETAMINOPHEN 325 MG TABLET (FP) PO PRN (21:08)
[2023-04-02] MEDS: GABAPENTIN 300 MG CAPSULE PO SCH ×3 (06:15→21:05)
[2023-04-02] MEDS: methaDONE HCL 40 MG DISPERSABLE TABLET PO SCH (06:15)
[2023-04-02] MEDS: PRENATAL VITAMINS W/ FOLIC ACID TABLET (FP) PO SCH (09:54)
[2023-04-02] MEDS: NICOTINE 14 MG/24 HOURS TOPICAL PATCH TD SCH (09:54)
[2023-04-02] MEDS: LIDOCAINE 5% TOPICAL PATCH TP SCH (09:54)
[2023-04-02] MEDS: METHOCARBAMOL 500 MG TABLET PO PRN ×2 (09:55→21:05)
[2023-04-02] MEDS: ACETAMINOPHEN 325 MG TABLET (FP) PO PRN ×2 (09:56→21:06)
[2023-04-02] MEDS: FERROUS SO4 325 MG TABLET (FP) PO SCH (09:57)
[2023-04-02] MEDS: MAGNESIUM HYDROX 2400MG/30ML ORAL SUSPENSION 30 ML CUP PO PRN (10:46)
[2023-04-02] MEDS: QUEtiapine FUMARATE 50 MG TABLET PO PRN (21:05)
[2023-04-02] MEDS: THIAMINE HCL 100 MG TABLET (FP) PO SCH (21:05)
[2023-04-02] MEDS: LIDOCAINE PATCH REMOVAL MC SCH (21:05)
[2023-04-03] MEDS: GABAPENTIN 300 MG CAPSULE PO SCH ×3 (06:04→21:19)
[2023-04-03] MEDS: methaDONE HCL 40 MG DISPERSABLE TABLET PO SCH (06:04)
[2023-04-03] MEDS: PRENATAL VITAMINS W/ FOLIC ACID TABLET (FP) PO SCH (09:54)
[2023-04-03] MEDS: ACETAMINOPHEN 325 MG TABLET (FP) PO PRN ×2 (09:55→21:19)
[2023-04-03] MEDS: FERROUS SO4 325 MG TABLET (FP) PO SCH (09:55)
[2023-04-03] MEDS: METHOCARBAMOL 500 MG TABLET PO PRN ×2 (09:55→21:19)
[2023-04-03] MEDS: LIDOCAINE 5% TOPICAL PATCH TP SCH (09:56)
[2023-04-03] MEDS: NICOTINE 14 MG/24 HOURS TOPICAL PATCH TD SCH (09:56)
[2023-04-03] MEDS: THIAMINE HCL 100 MG TABLET (FP) PO SCH (21:19)
[2023-04-03] MEDS: QUEtiapine FUMARATE 50 MG TABLET PO PRN (21:19)
[2023-04-03] MEDS: LIDOCAINE PATCH REMOVAL MC SCH (22:20)
[2023-04-04] MEDS: GABAPENTIN 300 MG CAPSULE PO SCH ×3 (06:40→21:30)
[2023-04-04] MEDS: methaDONE HCL 40 MG DISPERSABLE TABLET PO SCH (06:40)
[2023-04-04] MEDS: ACETAMINOPHEN 325 MG TABLET (FP) PO PRN ×2 (10:47→21:31)
[2023-04-04] MEDS: PRENATAL VITAMINS W/ FOLIC ACID TABLET (FP) PO SCH (10:47)
[2023-04-04] MEDS: METHOCARBAMOL 500 MG TABLET PO PRN ×2 (10:47→21:30)
[2023-04-04] MEDS: FERROUS SO4 325 MG TABLET (FP) PO SCH (10:47)
[2023-04-04] MEDS: LIDOCAINE 5% TOPICAL PATCH TP SCH (10:49)
[2023-04-04] MEDS: NICOTINE 14 MG/24 HOURS TOPICAL PATCH TD SCH (10:49)
[2023-04-04] MEDS: THIAMINE HCL 100 MG TABLET (FP) PO SCH (21:30)
[2023-04-04] MEDS: LIDOCAINE PATCH REMOVAL MC SCH (21:30)
[2023-04-04] MEDS: QUEtiapine FUMARATE 50 MG TABLET PO PRN (21:31)
[2023-04-05] MEDS: GABAPENTIN 300 MG CAPSULE PO SCH ×3 (06:25→21:01)
[2023-04-05] MEDS: methaDONE HCL 40 MG DISPERSABLE TABLET PO SCH (06:25)
[2023-04-05] MEDS: FERROUS SO4 325 MG TABLET (FP) PO SCH (10:16)
[2023-04-05] MEDS: LIDOCAINE 5% TOPICAL PATCH TP SCH (10:16)
[2023-04-05] MEDS: PRENATAL VITAMINS W/ FOLIC ACID TABLET (FP) PO SCH (10:16)
[2023-04-05] MEDS: NICOTINE 14 MG/24 HOURS TOPICAL PATCH TD SCH (10:16)
[2023-04-05] MEDS: METHOCARBAMOL 500 MG TABLET PO PRN ×2 (10:18→21:01)
[2023-04-05] MEDS: THIAMINE HCL 100 MG TABLET (FP) PO SCH (21:01)
[2023-04-05] MEDS: ACETAMINOPHEN 325 MG TABLET (FP) PO PRN (21:01)
[2023-04-05] MEDS: QUEtiapine FUMARATE 50 MG TABLET PO PRN (21:01)
[2023-04-05] MEDS: LIDOCAINE PATCH REMOVAL MC SCH (22:19)
[2023-04-06] MEDS: methaDONE HCL 40 MG DISPERSABLE TABLET PO SCH (06:05)
[2023-04-06] MEDS: GABAPENTIN 300 MG CAPSULE PO SCH ×3 (06:05→21:20)
[2023-04-06] MEDS: FERROUS SO4 325 MG TABLET (FP) PO SCH (09:40)
[2023-04-06] MEDS: ACETAMINOPHEN 325 MG TABLET (FP) PO PRN (09:40)
[2023-04-06] MEDS: METHOCARBAMOL 500 MG TABLET PO PRN ×2 (09:40→21:20)
[2023-04-06] MEDS: PRENATAL VITAMINS W/ FOLIC ACID TABLET (FP) PO SCH (09:40)
[2023-04-06] MEDS: LIDOCAINE 5% TOPICAL PATCH TP SCH (09:44)
[2023-04-06] MEDS: NICOTINE 14 MG/24 HOURS TOPICAL PATCH TD SCH (09:44)
[2023-04-06] MEDS: THIAMINE HCL 100 MG TABLET (FP) PO SCH (21:20)
[2023-04-06] MEDS: IBUPROFEN 600 MG TABLET (FP) PO PRN (21:20)
[2023-04-06] MEDS: LIDOCAINE PATCH REMOVAL MC SCH (21:22)
[2023-04-07] MEDS: GABAPENTIN 300 MG CAPSULE PO SCH ×3 (06:09→21:18)
[2023-04-07] MEDS: methaDONE HCL 40 MG DISPERSABLE TABLET PO SCH (06:09)
[2023-04-07] MEDS: ACETAMINOPHEN 325 MG TABLET (FP) PO PRN (10:05)
[2023-04-07] MEDS: FERROUS SO4 325 MG TABLET (FP) PO SCH (10:05)
[2023-04-07] MEDS: METHOCARBAMOL 500 MG TABLET PO PRN ×2 (10:05→21:19)
[2023-04-07] MEDS: PRENATAL VITAMINS W/ FOLIC ACID TABLET (FP) PO SCH (10:05)
[2023-04-07] MEDS: NICOTINE 14 MG/24 HOURS TOPICAL PATCH TD SCH (10:06)
[2023-04-07] MEDS: LIDOCAINE 5% TOPICAL PATCH TP SCH (10:06)
[2023-04-07] MEDS: THIAMINE HCL 100 MG TABLET (FP) PO SCH (21:18)
[2023-04-07] MEDS: QUEtiapine FUMARATE 50 MG TABLET PO PRN (21:18)
[2023-04-07] MEDS: LIDOCAINE PATCH REMOVAL MC SCH (21:37)
[2023-04-08] MEDS: methaDONE HCL 40 MG DISPERSABLE TABLET PO SCH (06:15)
[2023-04-08] MEDS: GABAPENTIN 300 MG CAPSULE PO SCH ×3 (06:15→21:18)
[2023-04-08] MEDS: LIDOCAINE 5% TOPICAL PATCH TP SCH (09:38)
[2023-04-08] MEDS: FERROUS SO4 325 MG TABLET (FP) PO SCH (09:38)
[2023-04-08] MEDS: PRENATAL VITAMINS W/ FOLIC ACID TABLET (FP) PO SCH (09:38)
[2023-04-08] MEDS: NICOTINE 14 MG/24 HOURS TOPICAL PATCH TD SCH (09:38)
[2023-04-08] MEDS: METHOCARBAMOL 500 MG TABLET PO PRN ×2 (09:38→21:18)
[2023-04-08] MEDS: QUEtiapine FUMARATE 50 MG TABLET PO PRN (21:18)
[2023-04-08] MEDS: ACETAMINOPHEN 325 MG TABLET (FP) PO PRN (21:18)
[2023-04-08] MEDS: THIAMINE HCL 100 MG TABLET (FP) PO SCH (21:18)
[2023-04-08] MEDS: LIDOCAINE PATCH REMOVAL MC SCH (21:46)
[2023-04-09] MEDS: GABAPENTIN 300 MG CAPSULE PO SCH ×3 (06:18→21:19)
[2023-04-09] MEDS: methaDONE HCL 40 MG DISPERSABLE TABLET PO SCH (06:19)
[2023-04-09 07:15] VITALS: TEMP 97.5
[2023-04-09] MEDS: LIDOCAINE 5% TOPICAL PATCH TP SCH (09:42)
[2023-04-09] MEDS: NICOTINE 14 MG/24 HOURS TOPICAL PATCH TD SCH (09:43)
[2023-04-09] MEDS: METHOCARBAMOL 500 MG TABLET PO PRN ×2 (09:44→21:19)
[2023-04-09] MEDS: ACETAMINOPHEN 325 MG TABLET (FP) PO PRN (09:44)
[2023-04-09] MEDS: PRENATAL VITAMINS W/ FOLIC ACID TABLET (FP) PO SCH (09:45)
[2023-04-09] MEDS: FERROUS SO4 325 MG TABLET (FP) PO SCH (09:45)
[2023-04-09] MEDS: LIDOCAINE PATCH REMOVAL MC SCH (21:19)
[2023-04-09] MEDS: THIAMINE HCL 100 MG TABLET (FP) PO SCH (21:19)
[2023-04-09] MEDS: QUEtiapine FUMARATE 50 MG TABLET PO PRN (21:19)
[2023-04-10] MEDS: methaDONE HCL 40 MG DISPERSABLE TABLET PO SCH (06:29)
[2023-04-10] MEDS: GABAPENTIN 300 MG CAPSULE PO SCH ×3 (06:29→21:09)
[2023-04-10] MEDS: LIDOCAINE 5% TOPICAL PATCH TP SCH (09:35)
[2023-04-10] MEDS: PRENATAL VITAMINS W/ FOLIC ACID TABLET (FP) PO SCH (09:35)
[2023-04-10] MEDS: NICOTINE 14 MG/24 HOURS TOPICAL PATCH TD SCH (09:35)
[2023-04-10] MEDS: FERROUS SO4 325 MG TABLET (FP) PO SCH (09:36)
[2023-04-10] MEDS: THIAMINE HCL 100 MG TABLET (FP) PO SCH (21:09)
[2023-04-10] MEDS: METHOCARBAMOL 500 MG TABLET PO PRN (21:09)
[2023-04-10] MEDS: QUEtiapine FUMARATE 50 MG TABLET PO PRN (21:09)
[2023-04-10] MEDS: LIDOCAINE PATCH REMOVAL MC SCH (21:10)
[2023-04-11] MEDS: GABAPENTIN 300 MG CAPSULE PO SCH (05:46)
[2023-04-11] MEDS: methaDONE HCL 40 MG DISPERSABLE TABLET PO SCH (05:46)
[2023-04-11 07:18] VITALS: BP 100/60; PULSE 62; RESP 16
[2023-04-11] MEDS: PRENATAL VITAMINS W/ FOLIC ACID TABLET (FP) PO SCH (09:38)
[2023-04-11] MEDS: FERROUS SO4 325 MG TABLET (FP) PO SCH (09:38)
[2023-04-11] MEDS: LIDOCAINE 5% TOPICAL PATCH TP SCH (09:38)
[2023-04-11] MEDS: NICOTINE 14 MG/24 HOURS TOPICAL PATCH TD SCH (09:39)
== END 2023-04-11 09:50 | disposition home or self-care (01) | DRG 895 ==
LOC: YASAS 14:00 → Y5N 17:13
PROVIDERS: ADMIT Allergy & Immunology; ATTEND Psychiatry & Neurology Pain Medicine
PROC: HZ42ZZZ Group Counseling for Substance Abuse Treatment, Cognitive-Behavioral (ICD-10-PCS; principal; 2023-03-21)
DX: F11.20 Opioid dependence, uncomplicated (principal); F14.20 Cocaine dependence, uncomplicated; F19.282 Other psychoactive substance dependence with psychoactive substance-induced sleep disorder; F10.20 Alcohol dependence, uncomplicated; F12.20 Cannabis dependence, uncomplicated; F17.210 Nicotine dependence, cigarettes, uncomplicated; F19.24 Other psychoactive substance dependence with psychoactive substance-induced mood disorder; F31.9 Bipolar disorder, unspecified; F41.9 Anxiety disorder, unspecified; I83.93 Asymptomatic varicose veins of bilateral lower extremities; J43.9 Emphysema, unspecified; M15.9 Polyosteoarthritis, unspecified; M54.50 Low back pain, unspecified; G89.29 Other chronic pain; R60.0 Localized edema; Z99.89 Dependence on other enabling machines and devices; Z59.00 Homelessness unspecified; Z56.0 Unemployment, unspecified
CPT/HCPCS: 36415; 80053; 81003; 82962; 84132; 85025; 85027; 86780; 86803; 87522; C9803-CS; U0003; U0005

== ENCOUNTER 2024-01-15 11:46 | Inpatient (IN) | payer OTHER ==
[2024-01-15 12:48] VITALS: BMI 24.5
[2024-01-15] MEDS ORDERED: guaiFENesin 600 MG TABLET.ER (FP) PO PRN (13:50)
[2024-01-15] MEDS ORDERED: NALOXONE HCL (KLOXXADO) 8 MG SPRAY NS PRN (13:50)
[2024-01-15] MEDS ORDERED: LOPERAMIDE HCL 2 MG CAPSULE PO PRN (13:50)
[2024-01-15] MEDS ORDERED: BISMUTH SUBSALICYLATE 262 MG/15 ML BTL PO PRN (13:50)
[2024-01-15] MEDS ORDERED: DICYCLOMINE HCL 10 MG CAPSULE PO PRN (13:50)
[2024-01-15] MEDS ORDERED: BENZOCAINE/MENTHOL (CHLORASEPTIC ) LOZENGE MM PRN (13:50)
[2024-01-15] MEDS ORDERED: NICOTINE POLACRILEX 2 MG GUM BUC PRN (13:50)
[2024-01-15] MEDS ORDERED: IBUPROFEN 400 MG TABLET (FP) PO PRN (13:50)
[2024-01-15] MEDS ORDERED: ACETAMINOPHEN 325 MG TABLET (FP) PO PRN (13:50)
[2024-01-15] MEDS ORDERED: ONDANSETRON *ODT* 4 MG TABLET SL PRN (13:50)
[2024-01-15] MEDS ORDERED: POLYETHYLENE GLYCOL (HEALTHYLAX) 3350 17 GM PACKET PO PRN (13:50)
[2024-01-15] MEDS ORDERED: MAG HYDROX/AL HYDROX/SIMETH 30 ML UNIT-DOSE CUP PO PRN (13:50)
[2024-01-15] MEDS ORDERED: MAGNESIUM HYDROX 2400MG/30ML ORAL SUSPENSION 30 ML CUP PO PRN (13:50)
[2024-01-15] MEDS ORDERED: BENZONATATE 200 MG CAPSULE PO PRN (13:50)
[2024-01-15] MEDS ORDERED: NALOXONE HCL 0.4 MG/ML VIAL IM PRN (13:50)
[2024-01-15] MEDS: METHOCARBAMOL 500 MG TABLET PO PRN (18:00)
[2024-01-15] MEDS: THIAMINE HCL 100 MG TABLET (FP) PO SCH (22:54)
[2024-01-15] MEDS: MELATONIN 5 MG TABLETS PO SCH (22:54)
[2024-01-16] MEDS ORDERED: BUPRENORPHINE HCL 150 MCG, BUPRENORPHINE HCL 75 MCG BC PRN (09:35)
[2024-01-16] MEDS: PRENATAL VITAMINS W/ FOLIC ACID TABLET (FP) PO SCH (10:40)
[2024-01-16] MEDS: BUPRENORPHINE HCL 150 MCG, BUPRENORPHINE HCL 75 MCG BC ONE (10:44)
[2024-01-16] MEDS: diazePAM 5 MG TABLET PO SCH (10:59)
[2024-01-16 11:03] LABS: HEMATOCRIT 33.9 % (35.4-49); HEMOGLOBIN 10.8 GM/dL (11.7-16.9); MCH 27.2 pg (25.7-33.7); MCHC 31.8 g/dl (32.0-35.9); MEAN CELL VOLUME 85.5 fl (80-96); MEAN PLT VOLUME 7.8 fl (7.5-11.1); PLATELET COUNT 232 10^3/uL (134-434); POTASSIUM 3.7 mmol/L (3.5-5.1); RBC 3.96 M/mm3 (4.00-5.60); RDW 18.4 % (11.9-15.9); WHITE BLOOD COUNT 7.4 K/mm3 (4.0-10.0)
[2024-01-16 11:16] LABS: BLOOD UREA NITROGEN 9.5 mg/dL (7-18)
[2024-01-16 11:19] LABS: BILIRUBIN,TOTAL 0.2 mg/dL (0.2-1); CREATININE 0.7 mg/dL (0.55-1.3); TOT PROT 6.1 g/dl (6.4-8.2)
[2024-01-17] MEDS ORDERED: BUPRENORPHINE HCL 150 MCG, BUPRENORPHINE HCL 75 MCG BC PRN
[2024-01-17] MEDS: BUPRENORPHINE HCL 150 MCG, BUPRENORPHINE HCL 75 MCG BC SCH (06:09)
[2024-01-17] MEDS: diazePAM 5 MG TABLET PO SCH (06:09)
[2024-01-18] MEDS: diazePAM 5 MG TABLET PO SCH (05:35)
[2024-01-18] MEDS: BUPRENORPHINE HCL 450 MCG FILM BC SCH (05:35)
[2024-01-18] MEDS: IBUPROFEN 600 MG TABLET (FP) PO PRN (14:46)
[2024-01-18] MEDS: hydrOXYzine PAMOATE 25 MG CAPSULE (FP) PO ONE (21:49)
[2024-01-19] MEDS: diazePAM 5 MG TABLET PO ONE (06:08)
[2024-01-19] MEDS: BUPRENORPHINE/NALOXONE 4 MG/1 MG FILM PACKET SL SCH (06:08)
[2024-01-19] MEDS: traZODone HCL 50 MG TABLET (FP) PO SCH (22:15)
[2024-01-20] MEDS: BUPRENORPHINE/NALOXONE 8 MG/2 MG FILM PACKET SL ONE (05:57)
[2024-01-21] MEDS: BUPRENORPHINE/NALOXONE 8 MG/2 MG FILM PACKET SL ONE (10:31)
[2024-01-22] MEDS: BUPRENORPHINE/NALOXONE 8 MG/2 MG FILM PACKET SL SCH (12:26)
[2024-01-23] MEDS: FERROUS SO4 325 MG TABLET (FP) PO SCH (10:38)
[2024-01-28] MEDS: traZODone HCL 100 MG TABLET (FP) PO SCH (21:01)
[2024-02-07 06:57] VITALS: RESP 18; TEMP 98.4
[2024-02-07 09:10] VITALS: BP 107/61; PULSE 87
== END 2024-02-07 09:02 | disposition home or self-care (01) | DRG 895 ==
LOC: YASAS 11:46 → Y6N 14:10 → Y3W 01-20 13:39
PROVIDERS: ADMIT Allergy & Immunology; ATTEND Psychiatry & Neurology Pain Medicine
PROC: HZ42ZZZ Group Counseling for Substance Abuse Treatment, Cognitive-Behavioral (ICD-10-PCS; principal; 2024-01-15)
DX: F11.20 Opioid dependence, uncomplicated (principal); F13.20 Sedative, hypnotic or anxiolytic dependence, uncomplicated; F14.20 Cocaine dependence, uncomplicated; F19.282 Other psychoactive substance dependence with psychoactive substance-induced sleep disorder; Z59.00 Homelessness unspecified; F10.20 Alcohol dependence, uncomplicated; F17.210 Nicotine dependence, cigarettes, uncomplicated; F31.9 Bipolar disorder, unspecified; F20.9 Schizophrenia, unspecified; F19.24 Other psychoactive substance dependence with psychoactive substance-induced mood disorder; D64.9 Anemia, unspecified; M17.11 Unilateral primary osteoarthritis, right knee; M54.50 Low back pain, unspecified; G89.29 Other chronic pain
CPT/HCPCS: 36415; 80053; 80305; 85027; 86780; 87635

== ENCOUNTER 2024-03-03 18:48 | Inpatient (IN) | payer MEDICARE, OTHER ==
[2024-03-03 19:25] VITALS: BMI 27.3
[2024-03-03] MEDS ORDERED: NALOXONE HCL (KLOXXADO) 8 MG SPRAY NS PRN (21:47)
[2024-03-03] MEDS ORDERED: BENZOCAINE/MENTHOL (CHLORASEPTIC ) LOZENGE MM PRN (21:47)
[2024-03-03] MEDS ORDERED: NALOXONE HCL 0.4 MG/ML VIAL IM PRN (21:47)
[2024-03-03] MEDS ORDERED: POLYETHYLENE GLYCOL (HEALTHYLAX) 3350 17 GM PACKET PO PRN (21:47)
[2024-03-03] MEDS ORDERED: LOPERAMIDE HCL 2 MG CAPSULE PO PRN (21:47)
[2024-03-03] MEDS ORDERED: guaiFENesin 600 MG TABLET.ER (FP) PO PRN (21:47)
[2024-03-03] MEDS ORDERED: BENZONATATE 200 MG CAPSULE PO PRN (21:47)
[2024-03-03] MEDS ORDERED: MAG HYDROX/AL HYDROX/SIMETH 30 ML UNIT-DOSE CUP PO PRN (21:47)
[2024-03-03] MEDS: MELATONIN 5 MG TABLETS PO SCH (23:21)
[2024-03-03] MEDS: THIAMINE 100 MG TABLET PO SCH (23:22)
[2024-03-04] MEDS: PRENATAL VITAMINS W/ FOLIC ACID TABLET (FP) PO SCH (10:09)
[2024-03-04] MEDS: NICOTINE 14 MG/24 HOURS TOPICAL PATCH TD SCH (10:09)
[2024-03-04 11:39] LABS: HEMATOCRIT 37.8 % (35.4-49); HEMOGLOBIN 12.2 GM/dL (11.7-16.9); MCHC 32.4 g/dl (32.0-35.9); MEAN CELL VOLUME 86.4 fl (80-96); MEAN PLT VOLUME 8.1 fl (7.5-11.1); PLATELET COUNT 233 10^3/uL (134-434); RBC 4.37 M/mm3 (4.00-5.60); RDW 18.5 % (11.9-15.9); WHITE BLOOD COUNT 4.9 K/mm3 (4.0-10.0)
[2024-03-04 11:52] LABS: CHLORIDE 103 mmol/L (98-107); POTASSIUM 4.4 mmol/L (3.5-5.1); SODIUM 136 mmol/L (136-145)
[2024-03-04 11:54] LABS: CALCIUM 8.9 mg/dL (8.5-10.1)
[2024-03-04 11:55] LABS: ALBUMIN 3.3 g/dl (3.4-5.0); ANION GAP 2 mmol/L (4-13); BLOOD UREA NITROGEN 19.9 mg/dL (7-18); CO2 31 mmol/L (21-32); GLUCOSE,RANDOM 100 mg/dL (74-106)
[2024-03-04 11:58] LABS: CREATININE 0.8 mg/dL (0.55-1.3); SGOT/AST 11 U/L (15-37); SGPT/ALT 15 U/L (13-61)
[2024-03-04 11:59] LABS: BILIRUBIN,TOTAL 0.1 mg/dL (0.2-1)
[2024-03-04 12:00] LABS: TOT PROT 6.2 g/dl (6.4-8.2)
[2024-03-04 12:01] LABS: ALK PHOS 96 U/L (45-117)
[2024-03-04] MEDS ORDERED: NICOTINE 14 MG/24 HOURS TOPICAL PATCH TD PRN (13:07)
[2024-03-04 13:30] LABS: SYPHILIS W/ RPR CONF NON-REACTIVE (NONREACTIVE)
[2024-03-05] MEDS: IBUPROFEN 600 MG TABLET (FP) PO PRN (09:17)
[2024-03-05] MEDS: hydrOXYzine PAMOATE 25 MG CAPSULE (FP) PO PRN (09:17)
[2024-03-06 14:32] LABS: EPI CELLS 4 /uL (0-25.1); HYALINE CASTS 1 /uL (0-3.1); URINE APPEARANCE CLEAR; URINE BACTERIA 4 /uL (0-1359); URINE BILIRUBIN NEGATIVE (NEGATIVE); URINE COLOR YELLOW; URINE GLUCOSE (UA) NEGATIVE (NEGATIVE); URINE KETONE NEGATIVE (NEGATIVE); URINE LEUK ESTERASE NEGATIVE (NEGATIVE); URINE NITRITE NEGATIVE (NEGATIVE); URINE PROTEIN NEGATIVE (NEGATIVE); URINE RBC 75 /uL (0-23.9); URINE WBC 1 /uL (0-25.8)
[2024-03-06] MEDS: QUEtiapine FUMARATE 50 MG TABLET PO SCH (21:07)
[2024-03-08] MEDS: ACETAMINOPHEN 325 MG TABLET (FP) PO PRN (18:36)
[2024-03-09] MEDS: MAGNESIUM HYDROX 2400MG/30ML ORAL SUSPENSION 30 ML CUP PO PRN (21:56)
[2024-03-11] MEDS: METHOCARBAMOL 500 MG TABLET PO SCH (11:21)
[2024-03-11] MEDS: BUPRENORPHINE/NALOXONE 2 MG/0.5 MG FILM PACKET SL ONE (15:13)
[2024-03-11] MEDS: MELATONIN 5 MG TABLETS PO SCH (21:06)
[2024-03-11] MEDS: BUPRENORPHINE/NALOXONE 4 MG/1 MG FILM PACKET SL ONE (21:08)
[2024-03-12] MEDS: BUPRENORPHINE/NALOXONE 4 MG/1 MG FILM PACKET SL SCH (10:16)
[2024-03-16] MEDS: IBUPROFEN 400 MG TABLET (FP) PO PRN (09:49)
[2024-03-18] MEDS: BACLOFEN 10 MG TABLET (FP) PO SCH (21:28)
[2024-03-24 06:20] VITALS: BP 103/67; PULSE 88; RESP 16; TEMP 98.1
== END 2024-03-24 09:12 | disposition home or self-care (01) | DRG 895 ==
LOC: YASAS 18:48 → Y3E 22:19
PROVIDERS: ADMIT Allergy & Immunology; ATTEND Psychiatry & Neurology Pain Medicine
PROC: HZ42ZZZ Group Counseling for Substance Abuse Treatment, Cognitive-Behavioral (ICD-10-PCS; principal; 2024-03-03)
DX: F11.20 Opioid dependence, uncomplicated (principal); F14.20 Cocaine dependence, uncomplicated; F13.20 Sedative, hypnotic or anxiolytic dependence, uncomplicated; F19.282 Other psychoactive substance dependence with psychoactive substance-induced sleep disorder; Z59.00 Homelessness unspecified; F12.20 Cannabis dependence, uncomplicated; F17.210 Nicotine dependence, cigarettes, uncomplicated; F19.24 Other psychoactive substance dependence with psychoactive substance-induced mood disorder; F31.9 Bipolar disorder, unspecified; F41.9 Anxiety disorder, unspecified; J44.9 Chronic obstructive pulmonary disease, unspecified; M25.551 Pain in right hip; M25.561 Pain in right knee; M54.50 Low back pain, unspecified; G89.29 Other chronic pain; Z99.89 Dependence on other enabling machines and devices
CPT/HCPCS: 36415; 80053; 80307; 81003; 85027; 86780; 86803; 87522; J0475